=== PATIENT | female | born 1940 | race Caucasian/White ===

== ENCOUNTER → 2019-07-15 09:13 | Outpatient (CLI) | payer MEDICARE, SELFPAY ==
[2019-07-16 09:17] LABS: COVID19 Sendout NOT DETECTED (Not Detect)
== END ==
PROVIDERS: Visit Provider Registered Nurse
DX: Z01.812 Encounter for preprocedural laboratory examination (principal)
CPT/HCPCS: 87635

== ENCOUNTER 2019-07-17 06:12 | Day surgery (SDC) | payer MEDICARE, SELFPAY ==
[2019-07-08 09:56] VITALS: BMI 31.4
[2019-07-17] VITALS (13 sets, daily range): BP systolic 96–137; BP diastolic 41–82; PULSE 59–80; RESP 12–18; TEMP 35.8–36.7; O2SAT 92–98; BMI 31.4
--- NOTE | 2019-07-17 06:00 | DI.RAD.S_ITS ---
PROCEDURE: XR HIP W PEL IF DONE LT 2V INDICATIONS: left total hip TECHNIQUE: AP pelvis with lateral view(s) of the left hip. COMPARISON: None. FINDINGS: Bones: No fractures or dislocations. Pelvic ring appears intact. No suspicious bony lesions. Soft tissues: The visualized bowel gas pattern is normal. No suspicious soft tissue calcifications. IMPRESSION: Successful left total hip arthroplasty with normal alignment. Prior right total hip arthroplasties there was no evidence of device loosening or disruption. Dictated by: Roel Phillips M.D. on 07/17/2019 at 10:43 Approved by: Roel Phillips M.D. on 07/17/2019 at 10:43
[2019-07-17] MEDS: ACETAMINOPHEN 325 MG TABLET 975 MG PO ×2 (06:51→20:32)
[2019-07-17] MEDS: CELECOXIB 200 MG CAPSULE PO (06:51)
[2019-07-17] MEDS: PREGABALIN 75 MG CAPSULE PO (06:51)
[2019-07-17] MEDS: LACTATED RINGERS 1,000 ML 42 ML IV ×2 (06:55→09:25)
[2019-07-17] MEDS: VANCOMYCIN 1,000 MG/200 ML PIGGYBACK 200 MG IV (07:00)
--- NOTE | 2019-07-17 07:42 | PM.PREOP ---
Pre-operative Note COVID-19 COVID-19 status: Negative Interval Note History & Physical reviewed/Exam performed by Physician: Yes Changes to H&P: No
--- NOTE | 2019-07-17 07:42 | PM.OP.1 ---
Operative Date/Time/Diagnoses Date of procedure: 07/17/19 Time of procedure: 07:42 Pre-op diagnosis: Left hip OA Post-op diagnosis: same Procedure & Clinicians Procedure: Left total hip arthroplasty posterior approach Same procedure as scheduled: Yes Indications: The patient has had progressively worsening left hip pain with radiographic changes consistent with arthritis. Non-operative management has failed and the patient has requested total hip replacement. The risks, benefits and alternatives to surgery were discussed with the patient prior to proceeding. Risks discussed included, but were not limited to, failure to relieve pain, leg length discrepancy, dislocation, stiffness, infection, nerve damage, deep venous thrombosis, pulmonary embolism, stroke, coma, heart attack, permanent paralysis and , as well as the potential need for eventual revision of the prosthetic. Surgeon: Jeanne Benedict Interior Design Principal: Sam Ramos Anesthesia Type: General and Spinal Operative Notes Findings: Severe left hip OA, good stability Closure Type: primary Specimen(s): none sent Prosthetic devices, grafts, tissues, transplants, or devices: [employer]hew 50 R3 cup, size 3 standard offset anthology, minus 3 x 32 mm Oxinium femoral head Estimated Blood Loss (mL): 250 Blood products transfused: none Procedure in detail: The patient was seen in the pre-operative area, where the patient identified the left hip as the operative site and this was marked with my initials. The patient received pre-operative antibiotics and was taken to the operating room and placed on the operative table in the right lateral decubitus position after satisfactory anesthesia. A time clock mechanic out was performed. The left leg was prepared from the ankle to the iliac crest with ChloroPrep in the usual fashion and draped through sterile drapes. The hip was approached through an approximately 20 cm incision centered over the greater trochanter and curving gently posteriorly as it went proximally. This was carried sharply to the fascia gracia, which was divided and retracted with a self retaining retractor. The trochanteric bursa was excised with care being taken to avoid the sciatic nerve, which was identified and protected throughout the case. The short external rotators were incised and the capsulomuscular flap was raised and tagged for later repair. The hip was dislocated, and a femoral neck osteotomy performed approximately 15 mm above the lesser trochanter. Retractors were placed around the femur. The canal was opened with a box cutting osteotome, followed by a T handled reamer and a lateralizing reamer. The chili pepper broach was then used, followed by sequential broaching until there was good stability of the broach in the femur. Retractors were placed to expose the acetabulum. The labrum and central soft tissues were removed. Reaming was performed initially going up in 2 mm increments, then 1 mm increments until good bite was obtained with an odd sized reamer. The cup 1 mm larger than the last reamer was then inserted using the appropriate anteversion guides. She had a somewhat sclerotic rim and I actually put the cup in was unhappy without was seated to get out re-reamed it slightly and then inserted the cup and got a well seated cup which was stable to testing. A trial neutral liner was placed. The broach was placed in the canal. A trial head and neck were then placed and the hip relocated and checked for leg length and stability. An intraoperative film confirmed the component position and no evidence of fracture. The patient was stable in the position of sleep, of squatting, and could be put through a range of motion with 45 degrees internal rotation without dislocation. At 90 degrees flexion, internal rotation to 80 was possible before dislocation. This was felt to be satisfactory and the appropriate components were opened, and the trials were removed. The acetabular liner was impacted into position. The final stem was then impacted into the prepared femoral canal. A brief Betadine soak was performed while trialing with head options. The hip was meticulously irrigated with normal saline. Finally the femoral head was impacted onto the stem. The acetabulum was cleared of all material and the hip relocated one final time. The capsulomuscular flap was then repaired to the greater trochanter though an awl hole using the tag sutures. The short external rotators were repaired with a nonabsorbable suture. A deep drain was placed and brought out anteriorly. The fascia gracia was closed with Vicryl. The subcutaneous layer was closed with barbed sutures and SteriStrips. An Aquacel Ag dressing was applied and the patient was taken to recovery having tolerated the procedure well. Complications: none Post-operative Condition: stable Disposition: Acute Care Plan for aftercare: The patient will be maintained on a standard total hip replacement protocol with weight bearing as tolerated and posterior hip precautions. The patient will receive Aspirin and sequential compression devices for DVT prophylaxis. The patient will be discharged home when safe for the home environment.
[2019-07-17] MEDS: CEFAZOLIN 2 GM/100 ML FROZ.PIGGY IV ×2 (07:55→17:16)
[2019-07-17] MEDS: TRANEXAMIC ACID 1,000 MG VIAL 1000 MG INJ ×2 (08:00→09:45)
--- NOTE | 2019-07-17 08:36 | SUR.OPER ---
Lateral on padded OR bed. Gel axillary roll. Arms secured on padded armboard with pillow supporting top arm. Padded hip positioner braces x4 - anterior and posterior chest and pelvis. Additional gel pad used anterior pelvis. Gel pad under bottom leg from knee to foot and secured with tape over sheet.
--- NOTE | 2019-07-17 08:38 | DI.RAD.S_ITS ---
PROCEDURE: XR PELVIS 1-2V INDICATIONS: INTEROPERATIVE TOTAL LEFT HIP TECHNIQUE: Intra-operative view of the pelvis and hip acquired. [facility] [place] [place], XR PELVIS WITH LATERAL HIP LEFT, 04/18/2019, 10:00. FINDINGS: Bones: Intraoperative devices prior to placement of arthroplasty prostheses are in expected positions. No fractures or suspicious bony lesions. Soft tissues: Overlying surgical retractors are present, along with other intraoperative changes. IMPRESSION: Intraoperative device in appropriate position and alignment. Dictated by: Jocelynn Sparks M.D. on 07/17/2019 at 9:38 Approved by: Jocelynn Sparks M.D. on 07/17/2019 at 9:38
[2019-07-17] MEDS: BUPIVACAINE 0.25% W/ EPI 30 ML VIAL 60 ML INJ (08:41)
[2019-07-17] MEDS: BUPIVACAINE LIPOSOME 266 MG/20 ML VIAL INJ (08:42)
[2019-07-17] MEDS: EPINEPHrine 1 MG/ML IRR (08:43)
[2019-07-17] MEDS: LACTATED RINGERS 1,000 ML 125 ML IV ×2 (11:19→20:41)
--- NOTE | 2019-07-17 12:09 | PC.NURSE ---
Pt to room 213 via bed from PACU. Pt awake alert and oriented. Denies pain, nausea, or shortness of breath. Oriented to room, call light, bed controls, and tv controls. Bed alarm on for safety. SCD's running. Pt agrees to not get up without assistance.
--- NOTE | 2019-07-17 13:41 | PT.IIE ---
Current Diagnoses Unilateral primary osteoarthritis, left hip (07/17/19) Surgery Performed Operation Date: 07/17/19 07:45 Actual Procedures p Total Hip Arthroplasty(Left) - Jeanne Benedict MD Surgical History (Last Updated 07/08/19 @ 10:16 by Selina Medeiros, RN) History of carpal tunnel surgery of right wrist (Acute) History of colonoscopy with polypectomy (Acute) History of hysterectomy (Acute) History of total right hip arthroplasty (Acute 12/04/14) Hx of bilateral cataract extraction (Acute) Hx of cholecystectomy (Acute) Hx of elbow surgery (Acute) Hx of thumb surgery (Acute) Status post epidural steroid injection (Acute) Medical History (Last Updated 07/08/19 @ 10:21 by Selina Medeiros RN) Bilateral hip pain (Acute) Diabetes mellitus, type II (Acute) Diverticulosis (Acute) Hearing impaired (Acute) HLD (hyperlipidemia) (Acute) HTN (hypertension) (Acute) Lumbar spinal stenosis (Acute) Neuropathy (Acute) Osteoarthritis (Acute) Physical Therapy Inpatient Evaluation/Re-Eval M1 PT/OT-IP Prior Functional Status Start: 07/17/19 13:48 Freq: NEEDED Status: Active Protocol: Document 07/17/19 13:02 DCW (Rec: 07/17/19 14:03 DCW [id number]) Medical Review Prior Functional Status Medical History Reviewed Yes Social History Household Members spouse Living Arrangements Mobile home Number of Floors (Floors) One Floor Number of Stairs To Enter/Railing? 5 DANNY /c B railing Home Environment Standard Height Toilet Home Equipment Four Wheel Walker M2 PT-IP Current Condition Start: 07/17/19 13:48 Freq: NEEDED Status: Active Protocol: Document 07/17/19 13:02 DCW (Rec: 07/17/19 14:03 DCW [id number]) Physical Therapy Current Condition Current Condition Evaluation Date 07/17/19 Treatment Diagnosis L XIMENA Onset Date 07/17/19 Precautions Posterior Hip Precautions No Hip Flexion > 90 degrees,No Hip Internal Rotation,No Hip Adduction Weight Bearing Status Weight Bearing Status Weight Bear as Tolerated M3 PT-IP Subjective Start: 07/17/19 13:48 Freq: NEEDED Status: Active Protocol: Document 07/17/19 13:02 DCW (Rec: 07/17/19 14:03 DCW [id number]) Subjective Physical Therapy Visit Type Type Initial Evaluation Visit Start Time 13:02 Visit Stop Time 13:41 Total Visit Minutes 39 Notes Pt is a 78 year old female being seen s/p L XIMENA on day of surgery. Pt notes her pain is just starting, and only a 1 /10. Has a history of R XIMENA ~4 years ago, and can still repeat all her hip precautions . Pt typically does not use an assistive device, but does have a 4WW that she'll use when out on long walks with my friends, it has a seat in case I get tired. Number of GANG HEAD SAW OPERATOR Visits 0 Therapy Pain Assessment Pain When Pain Assessed At Rest Pain Present Pain Present Pain Reported Location Left Hip Intensity 1 Scale Used Numeric (0 - 10) M4 PT-IP Mobility and Gait Start: 07/17/19 13:48 Freq: NEEDED Status: Active Protocol: Document 07/17/19 13:02 DCW (Rec: 07/17/19 14:03 DCW [id number]) PT-Bed Mobility Assessment Rolling Type of Rolling Roll to Right Level of Assist Standby Assistance Supine to Sit Supine to Sit Standby Assistance Sit to Supine Sit to Supine Standby Assistance Scooting Scooting to Edge of Bed Standby Assistance PT-Transfer Assessment Sit to and From Stand Sit to and from Stand Standby Assistance Equipment Transfer Assistive Device Bed Rail,Gait Belt,Front Wheeled Walker Transfers Transfer Destination Bed,Chair,Toilet Transfer Technique Stand Step Pivot Transfer Ability Level of Assist Standby Assistance Gait Assessment Gait Gait Assistance Required: Standby Assistance Distance (Feet) 10 Assistive Devices Assistive Device Gait Belt,Front Wheeled Walker Gait Deviations General Gait Pattern Antalgic,Decreased Stride Length,Decreased Feet Clearance,Flexed Trunk,Step-to Gait Factors Limiting Gait Function Factors Limiting Gait Function Decreased Sensation,Decreased Strength,Limited Range of Motion,Pain M5 PT-IP Objective Assessments Start: 07/17/19 13:48 Freq: NEEDED Status: Active Protocol: Document 07/17/19 13:02 DCW (Rec: 07/17/19 14:03 DCW [id number]) Orientation Orientation/Cognition Level of Alertness Alert Orientation Name,Birthday,Month,Date,Year, Day of Week,Place,Situation Language Function Ability No Deficits Noted Safety Awareness Understands Safety Issues Memory Description No Deficits Noted Gross Range of Motion Upper Extremity ROM Assessment Within Functional Limits Lower Extremity ROM Assessment Left Impaired Impairments Limited to posterior hip precautions Strength Lower Extremity Strength Assessment Left Impaired Hip 3-/5 Knee 4/5 Ankle 4/5 M6 PT-IP Treatment Start: 07/17/19 13:48 Freq: NEEDED Status: Active Protocol: Document 07/17/19 13:02 DCW (Rec: 07/17/19 14:03 DCW [id number]) Physical Therapy Treatment Exercises Exercises Ankle Pumps,Gluteal Sets,Quad Sets,Heel Slides,Supine Hip Abduction M7 PT-IP Assessment and Plan Start: 07/17/19 13:48 Freq: NEEDED Status: Active Protocol: Document 07/17/19 13:02 DCW (Rec: 07/17/19 14:03 DCW [id number]) PT Summary Assessment and Plan Potential Rehabilitation Potential Good Status of Condition at Evaluation Stable Summary Impairments Pain,ROM,Strength,Gait, Activity Tolerance Assessment Summary Pt is a low complexity evaluation performed day-of surgery following a left XIMENA. Pt demonstrates ability to lift leg against gravity, perform a heel slide to 90? hip flexion in a semi-reclined position, and abducts to 45?. Pt instructed in post-op hip TherEx, and demonstrated knowledge of all hip precautions. Pt able to perform all bed mobility at SBA. Pt willing to stand up and try to bear weight through leg, and then decided she needed to go to the restroom. Pt able to get to the toilet SBA /c FWW, ~10 feet, and void and perform pericare independently. Pt then returned to bed SBA /c FWW, and was too fatigued to participate in further therapy . Pt doing very well at this time, and will likely be safe to return home with spouse assistance within the next 1-2 days. Pt reports she did not have a good experience with out-patient PT following her last XIMENA, and is hesitant to schedule any follow-up after this XIMENA, but by the end of todays session, admitted that she knew it would be better if she were to see someone, and would think about scheduling further appointments. Goals Bed Mobility Goal Independent Transfer Goal Independent Gait Goal Independent Gait Distance 100 Other Goals Ascend/descend 5 steps /c bilateral railing SBA Frequency of Treatment Frequency Of Treatment Twice a Day Treatment Plan Physical Therapy Treatment Plan Bed Mobility Training,Transfer Training,Gait Training, Therapeutic Exercise,Post Op Education,Discharge Planning Recommendations To Nursing Amount of Assist Needed Standby Assistance Discharge Recommendations PT Discharge Recommendations Home with Assistance Transportation Needs at Discharge Private Vehicle
[2019-07-17] MEDS: ACETAMINOPHEN 325 MG TABLET 650 MG PO (13:50)
[2019-07-17] MEDS: IBUPROFEN 400 MG TABLET PO ×3 (13:50→20:38)
[2019-07-17] MEDS: AMLODIPINE 5 MG TABLET PO (20:33)
[2019-07-17] MEDS: diphenhydrAMINE 25 MG TABLET 50 MG PO (20:33)
[2019-07-17] MEDS: PRAVASTATIN 20 MG TABLET 40 MG PO (20:34)
[2019-07-17] MEDS: ASPIRIN EC 81 MG TABLET PO (20:34)
[2019-07-17] MEDS: atenoloL 50 MG TABLET PO (20:34)
[2019-07-17] MEDS: DOCUSATE 100 MG CAPSULE PO (20:34)
[2019-07-17] MEDS: MELATONIN 3 MG TABLET 9 MG PO (20:34)
[2019-07-17] MEDS: GLIMEPIRIDE 2 MG TABLET PO (20:45)
[2019-07-18] MEDS: CEFAZOLIN 2 GM/100 ML FROZ.PIGGY IV (00:14)
[2019-07-18] MEDS: IBUPROFEN 400 MG TABLET PO ×2 (05:09→08:38)
[2019-07-18 05:32] VITALS: BP 110/50; PULSE 60; RESP 18; TEMP 36.6; O2SAT 95
[2019-07-18 06:55] LABS: Hematocrit 32.7 % (36-46); Hemoglobin 11.3 g/dL (12.0-16.0)
--- NOTE | 2019-07-18 08:09 | PM.DS.1 ---
History of Present Illness History of Present Illness Date Patient Seen: 07/18/19 Time Patient Seen: 08:09 Chief complaint: Left Total Hip Arthroplasty Narrative: Patient was admitted with severe left hip osteoarthritis and taken to the operating room for a left total hip arthroplasty. Discharge Providers Provider Discharge Date: 07/18/19 Consults: 07/17/19 06:00 Consult to Anesthesiology Routine Comment: Consulting Provider: Anesthesiologist Reason for consultation: Regional block for post operative pain control 07/17/19 11:01 Consult to Discharge Planning Routine Comment: Consult to Physical Therapy Evaluate & Treat Comment: Physician Instructions: post op XIMENA protocol Consult to Respiratory Therapy Evaluate & Treat Comment: Physician Instructions: Evaluate and treat 07/17/19 11:02 Consult to Anesthesiology Routine Comment: Consulting Provider: Anesthesiologist Reason for consultation: Regional block for post operative pain control Discharge provider: Jeanne Benedict MD Summary Hospital Course Discharge Diagnosis: Severe left hip osteoarthritis, left total hip arthroplasty Hospital Course: Patient is taken the operating room underwent a left total hip arthroplasty. She tolerated the procedure well. She was mobilized with physical therapy. She was discharged to home when cleared by physical therapy. Status at Discharge Cognitive/behavioral status at discharge: oriented Functional status at discharge: uses cane/walker Overall status at discharge: patient is progressing back to baseline Time Spent with Patient Time spent: Less than 30 minutes Exam Vital Signs (past 8 hours): - 07/18/19 05:32 Temperature 97.8 F Pulse Rate 60 Respiratory Rate 18 Blood Pressure 110/50 L Pulse Oximetry 95 Oxygen Delivery Method Room Air Oxygen Flow Rate 0 Narrative Exam Narrative: She is alert and oriented HEENT is benign lungs are clear cor regular rate and rhythm, calfs are soft bilaterally, and she is able to do straight leg raise on the left her dressing is dry and intact. Objective Labs Result Diagrams: 07/18/19 06:39 Labs: Laboratory Results - last 24 hr 07/18/19 06:39 Hgb 11.3 L Hct 32.7 L Discharge Plan Discharge Plan Patient Disposition: Home Discharge comment: Discharge to home when safe and seen by Physical therapy Discharge Med Rec/Prescriptions Prescriptions: New aspirin 81 mg Tablet,Delayed Release (Dr/Ec) 81 mg PO BID Qty: 90 RF: 0 ibuprofen 400 mg Tablet 400 mg PO Q4HR Qty: 30 RF: 0 Continued pravastatin 40 mg Tablet 40 mg PO BEDTIME RF: 0 chlorthalidone 25 mg Tablet 25 mg PO DAILY RF: 0 amlodipine 5 mg Tablet 5 mg PO BEDTIME RF: 0 acetaminophen [Tylenol Extra Strength] 500 mg Tablet 1,000 mg PO DAILY RF: 0 glimepiride 2 mg Tablet 2 mg PO BEDTIME RF: 0 diphenhydramine-acetaminophen [Tylenol PM Extra Strength] 25-500 mg Tablet 2 tab PO BEDTIME RF: 0 lisinopril 40 mg Tablet 40 mg PO DAILY RF: 0 atenolol 50 mg Tablet 50 mg PO BID RF: 0 melatonin 10 mg Tablet 10 mg PO BEDTIME RF: 0 Discharge Orders: Discharge (Order); Ordered 07/18/19 Ordered By: Jeanne Benedict Provider Discharge Instructions Diet: Diet as Tolerated Activity: Walk multiple times a day. Do not bend down or pick objects off the floor. Cold/Heat Therapy: Use ice multiple times a day. Skin/Wound/Dressing Care Report to your healthcare provider any signs of infection, such as:: chills, fever, night sweats, increased pain, unusual drainage and unusual redness Dressing: Keep dressing on. Okay to shower Visit Report/Discharge Packet Instructions: DI for Hip Replacement Stand Alone Forms: Surgery Discharge Discharge Data Attending Provider: Jeanne Benedict VTE Deep Vein Thrombosis/Pulmonary Embolism Present on Admission: No
[2019-07-18 08:27] VITALS: BP 110/58; PULSE 72; RESP 16; TEMP 36.9; O2SAT 93
[2019-07-18] MEDS: DOCUSATE 100 MG CAPSULE PO (08:37)
[2019-07-18] MEDS: ASPIRIN EC 81 MG TABLET PO (08:37)
[2019-07-18] MEDS: ACETAMINOPHEN 325 MG TABLET 975 MG PO (08:37)
[2019-07-18] MEDS: atenoloL 50 MG TABLET PO (08:38)
[2019-07-18 11:45] VITALS: RESP 16; TEMP 36.7
[2019-07-18 12:00] VITALS: BP 95/52; PULSE 75; O2SAT 93
--- NOTE | 2019-07-18 12:02 | PC.NURSE ---
Addendum entered by Terra Shaw R.N. 07/18/19 12:51: CAREGIVER GIVING COMPLETED BY PHYSICAL THERAPY. PATIENT CLEARED FOR DC HOME. PATIENT LEFT WITH ALL BELONGINGS AND PAPERWORK IN NO S/SX'S OF DISTRESS W/ ALL BELONGINGS AND PAPERWORK IN [employer] WITH FAMILY MEMBER TO DRIVE HOME, AND SEVERAL FAMILY MEMBERS IN CAR TO GREET HER. Addendum entered by Terra Shaw R.N. 07/18/19 12:10: PATIENT REACHES 1500-2000CC'S W/ I.S. X10 BREATHS. INSTRUCTED TO TAKE I.S. HM AND CONTINUES Q 1 HR X10 W/A. Original Note: PATIENT REPORTS PAIN LEVEL 3/10 WITH TYLENOL AND IBUPROFEN. STATES DOES NOT WANT NARCOTIC PAIN MEDICATIONS. BP 110/58 THIS AM. HELD DIURETIC AND LISINOPRIL. GAVE BETA LAQUITA. PATIENT CLEARED FOR DC FROM PHYSICAL THERAPY. TOLERATED STAIRS. CAREGIVER TRAINING AT NOON. BP 98/50 HR 71 SITTING AT NOON, RECHECKED W/ PATIENT STANDING 95/52 HR 75. ASYMPTOMATIC. PATIENT HAS BP CUFF AT HOME. INSTRUCTED TO MONITOR PRESSURES AT HOME, SHE WILL HOLD BP EXCEPT BETA LAQUITA UNTIL SBP 120. CALL MD IF BP LOW OR SYMPTOMATIC. CALL 911 FOR EMERGENCY. REVIEWED ALL DC HOME PAPERWORK WITH PATIENT. INSTRUCTED TO CALL OFFICE TO CONFIRM F/U APPT. MIN ASSIST TO GET DRESSED, TOLERATED WELL. NO NARCOTIC SCRIPTS. PATIENT CONFIRMS UNDERSTANDING OF ALL DC PAPERWORK.
--- NOTE | 2019-07-18 12:42 | PT.IPTN ---
Current Diagnoses Unilateral primary osteoarthritis, left hip (07/17/19) Surgery Performed Operation Date: 07/17/19 07:45 Actual Procedures p Total Hip Arthroplasty(Left) - Jeanne Benedict MD Physical Therapy Treatment Note M2 PT-IP Current Condition Start: 07/17/19 13:48 Freq: NEEDED Status: Discharge Protocol: Document 07/17/19 13:02 DCW (Rec: 07/17/19 14:03 DCW [id number]) Physical Therapy Current Condition Current Condition Evaluation Date 07/17/19 Treatment Diagnosis L XIMENA Onset Date 07/17/19 Precautions Posterior Hip Precautions No Hip Flexion > 90 degrees,No Hip Internal Rotation,No Hip Adduction Weight Bearing Status Weight Bearing Status Weight Bear as Tolerated M3 PT-IP Subjective Start: 07/17/19 13:48 Freq: NEEDED Status: Active Protocol: Document 07/18/19 10:38 KS (Rec: 07/18/19 14:22 KS [email or web address]) Subjective Physical Therapy Visit Type Type Treatment Note Visit Start Time 10:38 Visit Stop Time 12:42 Total Visit Minutes 59 Notes Split treatment. 10:38-11:25, 12:30-12:42 Number of OPENER TENDER Visits 1 Physical Therapy Visit Comments Patient Comments Pt agreeable to working w/ therapy. Therapy Pain Assessment Pain When Pain Assessed During Mobility Pain Present Pain Present Pain Reported Location Left Hip Intensity 4 Scale Used Numeric (0 - 10) Pain Management Techniques Timing of Activity with Medications M4 PT-IP Mobility and Gait Start: 07/17/19 13:48 Freq: NEEDED Status: Active Protocol: Document 07/18/19 10:38 KS (Rec: 07/18/19 14:22 KS [id number]) PT-Bed Mobility Assessment Rolling Type of Rolling Roll to Left Level of Assist Standby Assistance Supine to Sit Supine to Sit Minimal Assistance,1 Person Assistance Sit to Supine Sit to Supine Standby Assistance Scooting Scooting to Edge of Bed Standby Assistance PT-Transfer Assessment Sit to and From Stand Sit to and from Stand Standby Assistance Equipment Transfer Assistive Device Gait Belt,Front Wheeled Walker ,4 Wheeled Walker Transfers Transfer Destination Bed,Chair,Toilet Transfer Technique Pt ambulated w/ 4WW Transfer Ability Level of Assist Standby Assistance,1 Person Assistance Comments Mobility Comments PT was in chair upon arrival from therapy. Able to recall 3 /3 precautions and demonstrate ankle pumps, quad sets, heel slides, and glute sets correctly. Pt then scooted edge of chair and sit<>stand SBA w/ 4WW w/ cues to apply brakes. Pt then ambulated ~150 ft w/ 4WW before taking seated rest break ~2 min. Pt able to improve gait w/ cues for quad acvtivation and upright posture. Pt then ambulated additional ~30 ft to stairs and complated 3 steps x2 w/ CGA and cues for sequencing and step to step pattern. Pt then ambulated ~ 180 ft back to room w/ 4WW and no rest break needed. Cues for upright posture. Pt returned to room and used bathroom, SBA for stand<>sit on toilet, cues to use hand rail. Pt then ambulated back to bed and sit<>supine CGA w/ use of gait belt to assist LLE into bed and scooting in bed SBA. Pt then required Min A for sup<>sit. This therapist then contacted pts family to perform caregiver training for pt transfers into and out of bed. Pt ambulated back to chair, left in chair w/ all needs in reach. Upon return for caregiver training, pt was sitting EOB w/ caregiver in room. Provided caregiver training on application of gaitbelt and assist for pt sup <>sit. Caregiver was able to provide correct assist to pt for sup<>sit and pt and caregiver state they both feel safe to perform at home. Gait Assessment Gait Gait Assistance Required: Standby Assistance Distance (Feet) 375 Able to Maintain Weight Bearing Status Yes During Gait Assistive Devices Assistive Device Gait Belt,4 Wheeled Walker Orthotic/Prosthetic Devices or Brace: No Gait Deviations General Gait Pattern Antalgic,Decreased Stride Length,Decreased Feet Clearance,Flexed Trunk Factors Limiting Gait Function Factors Limiting Gait Function Decreased Sensation,Decreased Strength,Limited Range of Motion,Pain Comments Gait Comments Pt ambulated ~375 feet total today w/ 4WW. She required 1 seated rest brake after ~150 ft ambulation. Demonstrated proper use of 4WW and brakes. Cues for upright posture and quad activation. Stair Climbing Assessment Evaluation Level of Assist On Stairs Standby Assistance,Contact Guard Assistance Devices Stair Climbing Assistive Devices Left Railing,Right Railing Technique/Endurance Stair Climbing Direction Ascend and Descend Stair Climbing Technique Step to Step Number of Steps Climbed 3 Stair Climbing Set # Repetitions (reps) 2 Comments Stair Climbing Comments Pt safely ascended/descended 3 steps x2 w/ step to step pattern and cues for leg sequencing. PT-Balance Assessment Sitting Balance and Reactions Static Sitting Balance Ability Normal Dynamic Sitting Balance Ability Good Standing Balance and Reactions Static Standing Balance Ability Good Dynamic Standing Balance Ability Good Device Used 4WW M5 PT-IP Objective Assessments Start: 07/17/19 13:48 Freq: NEEDED Status: Discharge Protocol: Document 07/17/19 13:02 DCW (Rec: 07/17/19 14:03 DCW [id number]) Orientation Orientation/Cognition Level of Alertness Alert Orientation Name,Birthday,Month,Date,Year, Day of Week,Place,Situation Language Function Ability No Deficits Noted Safety Awareness Understands Safety Issues Memory Description No Deficits Noted Gross Range of Motion Upper Extremity ROM Assessment Within Functional Limits Lower Extremity ROM Assessment Left Impaired Impairments Limited to posterior hip precautions Strength Lower Extremity Strength Assessment Left Impaired Hip 3-/5 Knee 4/5 Ankle 4/5 M6 PT-IP Treatment Start: 07/17/19 13:48 Freq: NEEDED Status: Active Protocol: Document 07/18/19 10:38 KS (Rec: 07/18/19 14:22 KS [email or web address]) Physical Therapy Treatment Exercises Exercises Ankle Pumps,Gluteal Sets,Quad Sets,Heel Slides Other Treatments Other Treatment Performed Caregiver training, gait belt LE assist, discussed outpatient rehab M7 PT-IP Assessment and Plan Start: 07/17/19 13:48 Freq: NEEDED Status: Active Protocol: Document 07/18/19 10:38 KS (Rec: 07/18/19 14:22 KS [email or web address]) PT Summary Assessment and Plan Potential Rehabilitation Potential Good Status of Condition at Evaluation Stable Summary Impairments Pain,ROM,Strength,Gait, Activity Tolerance Assessment Summary Pt had good tolerance for exercises and ambulation today . She demonstrated good carryover of exercises and good safety awareness. Able to recall and adhere to precautions. SBA for sit<> stand and ambulation w/ 4WW. 1 seated rest break during ambulation. Completed 3 steps x2 w/ SBA to CGA bilat handrails and cues for sequencing. Caregiver training completed for sup<>sit and LE assistance. Pt would be a good candidate for outpatient rehab to improve strength and functional mobility. Goals Bed Mobility Goal Independent Transfer Goal Independent Gait Goal Independent Gait Distance 100 Frequency of Treatment Frequency Of Treatment Twice a Day Treatment Plan Physical Therapy Treatment Plan Bed Mobility Training,Transfer Training,Gait Training, Therapeutic Exercise,Post Op Education,Discharge Planning Recommendations To Nursing Amount of Assist Needed Standby Assistance,1 Person Assist Discharge Recommendations PT Discharge Recommendations Home with Assistance Transportation Needs at Discharge Private Vehicle
--- NOTE | 2019-07-18 15:02 | CM.DANOTE ---
Discharge Planning/Care Management DCP: assessment: case received and discussed in Team Rounds. PT noted that thus far the PT recommendation was for home setting. A d/c order was noted. Pt is a 78 year old female who admitted yesterday for a scheduled L XIMENA: surgeon: Dr. Zaki Benedict. Payer: [facility] Medicare Admission status: SDC: confirmed by UR RN A check in later showed that pt has already left for the home setting , picked up by multiple family members. No concerns re the d/c today were identified by the care team members. Pre-Anesthesia Assessment Start: 07/03/19 09:30 Freq: Status: Complete Protocol: Document 07/08/19 09:56 CAB (Rec: 07/03/19 10:04 CAB [id number]) Pre-Anesthesia Assessment Patient Information Reviewed Via Phone Assessment Assessment Completed With Patient H&P Completed Within 30 Days Yes Diagnostic Results BMP/CMP,CBC,EKG,Other Comment Outside records scanned to record-Pt will call to schedule COVID-19 Primary Care Provider Taz Seen Specialist in Last 12 Months Yes Specialist Seen Opthamologist/Computer Engineering Technician, Orthopedist Primary Language Thai Preferred Language Thai Stripper Opaquer Required No Height 154.94 cm Weight 75.296 kg Body Mass Index (BMI) 31.4 Hearing Ability Hard of Hearing,Use of Hearing Aid Visual Assist Glasses Dentition Type Full- Upper Barriers to Learning None,Age related,Memory Other Aids No Hx Anesthesia Reactions No Hx Family Anesthesia Reaction No Hx Malignant Hyperthermia No Hx Blood Transfusions Yes: r/t cholecystectomy Hx Blood Transfusion Reaction No Anesthesia Review Requested No alcohol intake never Smoking Status Never smoker Substance Use Type does not use Pain Present Pain Reported Musculoskeletal Symptoms Abnormal Gait,Back Pain, Difficulty Walking,Joint Pain, Myalgias History of Falling (Recent or History of No ) Patient is completely paralyzed or No completely immobile Prosthesis or Orthotic Device Front Wheel Walker Mental Status Oriented to own ability Is patient on oxygen? No Does patient have ALSTON/SOB No Hx Sleep Apnea No Currently Taking a Beta Ruby Yes: Atenolol Can You Climb a Flight of Stairs Without No SOB Hx Chest Pain No Hx SOB No Hx Syncope or Dizziness No Anti-Coagulant Therapy No Has a Gas Compressor Operator No Cardiac Testing No Hx Pacemaker/ICD No Pacemaker Rep Required? No Cardiac Clearance Received Not Applicable Diet Type At Home Regular dysphagia No Gastrointestinal Symptoms Diarrhea Bladder Pattern Incontinent,Retention,Urgency Urinary Catheter Present No Hx Urinary Self Catheterization No Diabetes Yes HgbA1C 7.5 Date 05/20/19 Patient No Lactating No Hx Drug Resistant Organism No Presence of External or Internal Medical Yes: Bilat eye lens, right hip Devices prosthesis Have you had any close contact with No someone diagnosed with COVID-19? Evaluation/Screening for possible COVID- Yes 19 infection completed? Marital Status Lives With spouse Prior Living Arrangements House Number of Floors (Floors) One Floor Support System Spouse Does the Patient Have Assistance After Yes: has cognitive Surgery difficulties, possible dementia Patient Discharge Plan Description Return Home,Other Comment Pt advised overnight length of stay per surgeon Feels Safe in Current Environment Yes Been Physically Hurt or Threatened By a No Person in Current Environment Do you have thoughts of harming yourself None or others? Are you currently considering suicide? No Do you have a plan to hurt yourself or No Plan others? Do You Have Any Spiritual Beliefs That No May Affect Your HC Choices? Do You Have Any Cultural Practices That No May Affect Your HC Choices? Comment Spiritism Who Can We Speak to About Patient's Care Family, friends Identifying Code for Release of Patient Declines to issue Information Health Care Proxy/Next of Kin Christie Eddy (family) Health Care Proxy Emergency Contact Name Christie Eddy (family) Emergency Contact Advance Directives? Yes Advance Directives on File Yes Power of Training Facilitator Yes PAC Instructions Diabetes instructions,Do not shave/clip surgical site, Durable medical equipment, Nasal antibiotic,No ETOH/ petroleum product on skin DOS, NPO,Post-op transportation,Pre -surgical wash,Sensory aids, Sturdy shoes/comfortable clothes
== END 2019-07-18 12:53 | disposition home or self-care (01) ==
LOC: OR 06:29 → AC 08:44
PROVIDERS: Referring Provider Orthopaedic Surgery; Visit Provider Orthopaedic Surgery
PROC: 0SRB0JZ Replacement of Left Hip Joint with Synthetic Substitute, Open Approach (ICD-10-PCS; CPT 27130; principal; 2019-07-17 07:45)
DX: M16.12 Unilateral primary osteoarthritis, left hip (principal); I10 Essential (primary) hypertension; E11.9 Type 2 diabetes mellitus without complications; E78.5 Hyperlipidemia, unspecified; Z79.84 Long term (current) use of oral hypoglycemic drugs
CPT/HCPCS: 27130; 36415; 72170; 73502; 85014; 85018; 97110; 97116; 97161; 97530; C1776; C9290; J0171; J0690; J2250; J2704; J3010

== ENCOUNTER → 2023-05-26 10:26 | Outpatient (CLI) | payer MEDICARE, SELFPAY ==
[2019-07-17 11:25] VITALS: BMI 31.4
--- NOTE | 2023-05-26 | DI.CT.S_ITS ---
PROCEDURE: CT LE LT W CON INDICATIONS: Presence of left artificial hip joint TECHNIQUE: Noncontrast 3 mm axial sections acquired through the bony pelvis. Additional 3 mm axial sections acquired through the symptomatic hip joint, with coronal and sagittal reformats. COMPARISON: [facility], CR, XR PELVIS WITH LATERAL HIP LEFT, 05/16/2023, 16:38. FINDINGS: Image quality: Excellent. Bones: Partially visualized lower lumbar fusion present at L4-5. Left pedicular screw at L4 terminates along the lateral margin of the vertebral body. Hardware is intact. Bilateral hip arthroplasties are present. The left arthroplasty intact without hardware fracture or periprosthetic lucency to suggest loosening. Alignment is stable. The right hip arthroplasty is only identified on motel clerk view and alignment is stable. Soft tissues: Intestinal gas pattern is nonobstructive. Mild scattered diverticula without inflammatory change. Bladder is distended. IMPRESSION: Bilateral hip arthroplasties with stable alignment. Dictated by: Merry Hagan M.D. on 05/27/2023 at 8:39 Approved by: Merry Hagan M.D. on 05/27/2023 at 8:42
== END ==
LOC: CT 10:27
PROVIDERS: Referring Provider Orthopaedic Surgery; Visit Provider Orthopaedic Surgery
DX: Z96.643 Presence of artificial hip joint, bilateral (principal); Z09 Encounter for follow-up examination after completed treatment for conditions other than malignant neoplasm
CPT/HCPCS: 73700

== ENCOUNTER 2024-06-05 08:28 | Inpatient (IN) | payer MEDICARE, SELFPAY ==
[2019-07-17 11:25] VITALS: BMI 31.4
[2024-05-28 07:14] VITALS: BMI 26.2
[2024-06-05] VITALS (12 sets, daily range): BP systolic 101–145; BP diastolic 42–64; PULSE 51–65; RESP 12–20; TEMP 35.8–36.6; O2SAT 95–99; BMI 26.4; BMI 27.6
--- NOTE | 2024-06-05 | DI.RAD.S_ITS ---
PROCEDURE: XR PELVIS 1-2V INDICATIONS: INTRA OP LEFT HIP TECHNIQUE: Intra-operative view of the pelvis and hip acquired. COMPARISON: [facility], CR, XR PELVIS 1-2V, 07/17/2019, 9:04. FINDINGS: Bones: Intraoperative devices of arthroplasty are in expected positions. No fractures or suspicious bony lesions. Soft tissues: Overlying surgical retractors are present, along with other intraoperative changes. IMPRESSION: Left hip arthroplasty in progress Approved by: Johnny Land M.D. on 06/05/2024 at 12:10
--- NOTE | 2024-06-05 06:43 | DI.RAD.S_ITS ---
PROCEDURE: XR HIP W PEL IF DONE LT 2V INDICATIONS: left hip revision TECHNIQUE: AP pelvis and lateral view of the hip acquired. COMPARISON: [facility], CR, XR PELVIS WITH LATERAL HIP LEFT, 04/17/2024, 11:43. [facility], CR, XR PELVIS 1-2V, 06/05/2024, 11:54. FINDINGS: Bones: Patient is status post left hip arthroplasty, with hardware components in expected positions. The hip joint appears congruent. Stable appearance of right hip arthroplasty peer The visualized bony structures appear intact. Partially visualized lower lumbar spine hardware. Soft tissues: Overlying postoperative changes are noted. No suspicious soft tissue densities. IMPRESSION: Expected post-operative appearance of a hip arthroplasty. Dictated by: Troy Hunt M.D. on 06/06/2024 at 12:20 Approved by: Troy Hunt M.D. on 06/06/2024 at 12:21
[2024-06-05] MEDS: VANCOMYCIN 1,000 MG in SODIUM CHLORIDE 0.9% 250 ML 250 MG IV (09:37)
[2024-06-05] MEDS: ACETAMINOPHEN 325 MG TABLET 975 MG PO (09:37)
[2024-06-05] MEDS: CELECOXIB 200 MG CAPSULE PO (09:37)
[2024-06-05] MEDS: LACTATED RINGERS 1,000 ML 42 ML IV (09:37)
--- NOTE | 2024-06-05 10:22 | PM.PREOP ---
Pre-operative Note Interval Note History & Physical reviewed/Exam performed by Physician: Yes Changes to H&P: No
--- NOTE | 2024-06-05 10:23 | PM.OP.1 ---
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 She also has a history of a spine fusion. She has had multiple episodes of instability in the left hip all of which have been posterior. She is failed extensive conservative treatment including bracing and significant activity modification. Non-operative management has failed and the patient has requested revision total hip replacement. The risks, benefits and alternatives to surgery were discussed with the patient prior to proceeding. Risks discussed included, but were not limited to, failure to relieve pain, leg length discrepancy, dislocation, stiffness, infection, nerve damage, deep venous thrombosis, pulmonary embolism, stroke, coma, heart attack, permanent paralysis and , as well as the potential need for eventual revision of the prosthetic. We also discussed that this likely will slightly lengthen her leg and make it a little bit tighter but she still needs to continue with posterior hip precautions. Surgeon: Jeanne Benedict Separations Scientist: Vadim Mcdonnell Anesthesia Type: Spinal Operative Notes Findings: No evidence of femoral or acetabular loosening, instability with flexion and internal rotation prior to revision at about 30? of internal rotation, improved stability after revision, stable in maximum external rotation, stable at 45? to about 80-90 degrees of internal rotation and 90? stable to 80? of internal rotation Closure Type: primary Specimen(s): none sent Prosthetic devices, grafts, tissues, transplants, or devices: Benedict and nephew 36 mm 20 degree by 50 mm lipped polyethylene, 36 x +0 Oxinium head Estimated Blood Loss (mL): 200 Blood products transfused: none Procedure in detail: The patient was seen in the pre-operative area, where the patient identified the left hip as the operative site and this was marked with my initials. The patient received pre-operative antibiotics and was taken to the operating room and placed on the operative table in the right lateral decubitus position after satisfactory anesthesia. A multimedia technician out was performed. The left leg was prepared from the ankle to the iliac crest with ChloroPrep in the usual fashion and draped through sterile drapes. A PA was used during the procedure and was essential for intraoperative retraction and safe implantation of the components. The hip was approached through an approximately 20 cm incision centered over the greater trochanter and curving gently posteriorly as it went proximally. This was carried sharply to the fascia gracia, which was divided and retracted with a self retaining retractor. The trochanteric bursa was excised with care being taken to avoid the sciatic nerve, which was identified and protected throughout the case. The short external rotators were identified and the capsulomuscular flap was tagged for later repair. The patient was placed through meticulous range of motion. There was evidence of instability in high flexion with internal rotation of about 30?. There was no obvious impingement anteriorly. Even at 45? it could be noted to posteriorly sublux with about 60? of internal rotation. The hip was dislocated, and the head was removed. Retractors were placed to expose the acetabulum. The acetabular liner was removed. A trial 36 mm lipped liner was placed. The 20 degree lip was placed posteriorly and along the posterior and inferior rim. A trial head +0 was then placed and the hip relocated and checked for leg length and stability. An intraoperative film confirmed the component position and no evidence of fracture. The patient was stable in the position of sleep, of squatting, and could be put through a range of motion with 45 degrees internal rotation without dislocation. At 90 degrees flexion, internal rotation to 80? was possible before dislocation. This was felt to be satisfactory and the appropriate components were opened, and the trials were removed. The acetabular liner was impacted into position. A brief Betadine soak was performed while trialing with head options. The hip was meticulously irrigated with normal saline. Finally the femoral head was impacted onto the stem. The acetabulum was cleared of all material and the hip relocated one final time. The capsulomuscular flap was then repaired to the greater trochanter though an awl hole using the tag sutures. The short external rotators were repaired with a nonabsorbable suture. A deep drain was placed and brought out anteriorly. The fascia gracia was closed with Vicryl. The subcutaneous layer was closed with barbed sutures and SteriStrips. A nawaf dressing was applied and the patient was taken to recovery having tolerated the procedure well. Complications: none Post-operative Condition: stable Disposition: Acute Care Plan for aftercare: The patient will be maintained on a standard total hip replacement protocol with weight bearing as tolerated and posterior hip precautions. The patient will receive Aspirin and sequential compression devices for DVT prophylaxis. The patient will be discharged home when safe for the home environment.
[2024-06-05] MEDS: CEFAZOLIN 2 GM/100 ML PREMIX 100 ML IV ×2 (11:01→21:09)
[2024-06-05] MEDS: TRANEXAMIC ACID 1,000 MG VIAL 1000 MG INJ ×2 (11:08→12:38)
--- NOTE | 2024-06-05 11:33 | SUR.OPER ---
Lateral on padded OR bed. Gel axillary roll. Arms secured on padded armboard with pillow supporting top arm. Padded hip positioner braces x4 - anterior and posterior chest and pelvis. Additional gel pad used anterior pelvis. Gel pad under bottom leg from knee to foot and secured with tape over sheet. Dr. Benedict in room to assist with positioning. All pressure points padded, positioning approved by
[2024-06-05] MEDS: BUPIVACAINE 0.25% W/ EPI 30 ML VIAL 60 ML INJ (12:12)
[2024-06-05] MEDS: BUPIVACAINE LIPOSOME 266 MG/20 ML VIAL INJ (12:13)
[2024-06-05] MEDS: MORPHINE 10 MG/ML INJ IV (13:30)
[2024-06-05] MEDS: ACETAMINOPHEN 325 MG TABLET 650 MG PO ×2 (14:30→21:11)
[2024-06-05] MEDS: LACTATED RINGERS 1,000 ML 100 ML IV ×2 (14:31→22:18)
--- NOTE | 2024-06-05 15:58 | PT.IIE ---
Current Diagnoses Dislocation of internal left hip prosthesis, initial encounter (06/05/24) Presence of left artificial hip joint (06/05/24) Surgery Performed Operation Date: 06/05/24 10:45 Actual Procedures p Revision, total arthroplasty, hip, of the polyethylene liner and femoral head (left)(Left) - Jeanne Benedict MD Surgical History (Last Reviewed 06/05/24 @ 09:14 by Azeb Cutler, RN) History of carpal tunnel surgery of left wrist (~2021) History of carpal tunnel surgery of right wrist History of colonoscopy with polypectomy History of hysterectomy History of total left hip replacement (07/17/19) History of total right hip arthroplasty (12/04/14) Hx of bilateral cataract extraction Hx of cholecystectomy Hx of elbow surgery Hx of thumb surgery Status post epidural steroid injection Medical History (Last Reviewed 06/05/24 @ 09:14 by Azeb Cutler, AINSLEY) Ankle fracture (2023) Bilateral hip pain Cervical radiculopathy due to degenerative joint disease of spine Diabetes mellitus, type II Diverticulosis Hearing impaired Hip dislocation, left HLD (hyperlipidemia) HTN (hypertension) Lumbar spinal stenosis Lumbar stenosis with neurogenic claudication Medication side effect Memory changes Neuropathy Osteoarthritis Physical Therapy Inpatient Evaluation/Re-Eval M1 PT/OT-IP Prior Functional Status Start: 06/05/24 14:16 Freq: NEEDED Status: Active Protocol: Document 06/05/24 15:41 SAK (Rec: 06/05/24 15:58 [facility] [id number]) Medical Review Prior Functional Status Medical History Reviewed Yes Communication intact Mobility and Gait modified independent; has had 6 dislocations past few years Activities of Daily Living and IADL's indep Social History Household Members none Living Arrangements RV Number of Floors (Floors) One Floor Number of Stairs To Enter/Railing? 3, railing Home Environment Standard Height Toilet,Walk in Shower Home Equipment Front Wheel Walker,Quad Cane Employment Status Retired Additional Social History Comment Lives in [place]. Son in care center. States neighbors available to help including driving her to OP PT . M2 PT-IP Current Condition Start: 06/05/24 14:16 Freq: NEEDED Status: Active Protocol: Document 06/05/24 15:41 SAK (Rec: 06/05/24 15:58 [facility] [id number]) Physical Therapy Current Condition Current Condition Evaluation Date 06/05/24 Treatment Diagnosis s/p L posterior XIMENA revision Onset Date 06/05/24 M3 PT-IP Subjective Start: 06/05/24 14:16 Freq: NEEDED Status: Active Protocol: Document 06/05/24 15:41 SAK (Rec: 06/05/24 15:58 [facility] [id number]) Subjective Physical Therapy Visit Type Type Progress Note Visit Start Time 15:10 Visit Stop Time 15:43 Number of SALES REPRESENTATIVE PRINTING PAPER Visits 0 Physical Therapy Visit Comments Patient Comments Willing to do PT, reports minimal pain, hopes to go home tomorrow. Patient Goals Discharge home, has OP PT scheduled in [place] where she lives Therapy Pain Assessment Pain When Pain Assessed At Rest Pain Present Pain Present Pain Reported Location Left Hip Intensity 2 Pain Behaviors Wincing M4 PT-IP Mobility and Gait Start: 06/05/24 14:16 Freq: NEEDED Status: Active Protocol: Document 06/05/24 15:41 SAK (Rec: 06/05/24 15:58 [facility] [id number]) PT-Bed Mobility Assessment Supine to Sit Supine to Sit Moderate Assistance Sit to Supine Sit to Supine Minimal Assistance Scooting Scooting to Edge of Bed Standby Assistance PT-Transfer Assessment Sit to and From Stand Sit to and from Stand Contact Guard Assistance Equipment Transfer Assistive Device Gait Belt,Front Wheeled Walker Orthotic/Prosthetic Devices or Brace: No Transfers Transfer Destination Bed Transfer Technique Stand Step Pivot Transfer Ability Level of Assist Contact Guard Assistance Gait Assessment Gait Gait Assistance Required: Contact Guard Assist,1 Person Assist Distance (Feet) 40 Able to Maintain Weight Bearing Status Yes During Gait Assistive Devices Assistive Device Gait Belt,Front Wheeled Walker Gait Deviations General Gait Pattern Antalgic,Step-to Gait Factors Limiting Gait Function Factors Limiting Gait Function Pain Comments Gait Comments cues to turn by taking steps, not pivoting Stair Climbing Assessment Comments Stair Climbing Comments discussed practicing in am PT-Balance Assessment Sitting Balance and Reactions Static Sitting Balance Ability Good Dynamic Sitting Balance Ability Good Standing Balance and Reactions Static Standing Balance Ability Fair Dynamic Standing Balance Ability Fair Device Used FWW M5 PT-IP Objective Assessments Start: 06/05/24 14:16 Freq: NEEDED Status: Active Protocol: Document 06/05/24 15:41 [facility] (Rec: 06/05/24 15:58 [facility] [id number]) Orientation Orientation/Cognition Level of Alertness Alert Orientation Name,Age,Place,Situation Language Function Ability No Deficits Noted Safety Awareness Decreased Safety Awareness Memory Description Short Term Impaired Comments Patient unable to recall post XIMENA precautions after instruction and review Gross Range of Motion Upper Extremity ROM Assessment Within Functional Limits Lower Extremity ROM Assessment Within Functional Limits Strength Upper Extremity Strength Assessment Within Functional Limits Lower Extremity Strength Assessment Within Functional Limits Coordination Assessment Gross Coordination Gross Coordination WNL Sensation Assessment Sensation Gross Sensation WNL M6 PT-IP Treatment Start: 06/05/24 14:16 Freq: NEEDED Status: Active Protocol: Document 06/05/24 15:41 [facility] (Rec: 06/05/24 15:58 [facility] [id number]) Physical Therapy Treatment Exercises Exercises Ankle Pumps,Gluteal Sets,Quad Sets,Heel Slides,Supine Hip Abduction Education Education Provided Precautions,Safety Other Treatments Other Treatment Performed Instructed in post XIMENA verbally and with written HO. Patient will need further instruction for functional adherence. She has OP PT scheduled in [place] M7 PT-IP Assessment and Plan Start: 06/05/24 14:16 Freq: NEEDED Status: Active Protocol: Document 06/05/24 15:41 [facility] (Rec: 06/05/24 15:58 [facility] [id number]) PT Summary Assessment and Plan Potential Rehabilitation Potential Good Status of Condition at Evaluation Stable Summary Impairments Pain,Cognition,Gait Assessment Summary Patient seen for PT s/p left posterior XIMENA revision s/p 6 dislocations. Patient reporting minimal pain, instructed in HEP with good tolerance, indep with heel slide and hip abduction. Min assist bed mobility, CGA for gait in room with FWW with no LOB but required cues for turning by taking steps and not pivoting. Instructed pt. in post-op posterior XIMENA precautions, then observed patient cross her ankles in bed after pillow removed from between legs. Reviewed precautions 2 further times during session with patient having difficulty recalling. Concerned about potential for dislocation. Patient lives alone but has [employer] and neighbors to help including taking her to OP PT. Will need further review of XIMENA precautions with application to typical activities including gardening and quilting (last dislocated when bent to flower picker bobbin up from the floor while sitting). Goals Bed Mobility Goal Independent Transfer Goal Independent Gait Goal Independent,Front Wheel Walker Gait Distance 100 Other Goals independent ascend and descend with railing and SPC Days to Meet Goals 7 Frequency of Treatment Frequency Of Treatment Twice a Day Precautions Posterior Hip Precautions No Hip Flexion > 90 degrees,No Hip Internal Rotation,No Hip Adduction Weight Bearing Status Weight Bearing Status Weight Bear as Tolerated Recommendations To Nursing Amount of Assist Needed 1 Person Assist Discharge Recommendations PT Discharge Recommendations Home with Assistance, Outpatient PT Transportation Needs at Discharge Private Vehicle
[2024-06-05] MEDS: atenoloL 25 MG TABLET 50 MG PO (21:09)
[2024-06-05] MEDS: ASPIRIN EC 81 MG TABLET PO (21:09)
[2024-06-05] MEDS: AMLODIPINE 5 MG TABLET PO (21:09)
[2024-06-05] MEDS: DOCUSATE 100 MG CAPSULE PO (21:09)
[2024-06-05] MEDS: TRAZODONE 50 MG TABLET PO (21:09)
[2024-06-05] MEDS: ATORVASTATIN 20 MG TABLET 80 MG PO (21:09)
[2024-06-05] MEDS: MELATONIN 3 MG TABLET 9 MG PO (21:09)
[2024-06-06] VITALS: BP 101/44; PULSE 69; TEMP 36.4; O2SAT 92
[2024-06-06] MEDS: CEFAZOLIN 2 GM/100 ML PREMIX 100 ML IV (04:02)
[2024-06-06 04:25] LABS: Hematocrit 30.6 % (36-46); Hemoglobin 10.8 g/dL (12.0-16.0)
[2024-06-06] MEDS: ACETAMINOPHEN 325 MG TABLET 650 MG PO ×2 (07:02→18:32)
--- NOTE | 2024-06-06 07:28 | P.DS_ITS ---
History of Present Illness History of Present Illness Date Patient Seen: 06/06/24 Time Patient Seen: 07:28 Chief complaint: INPT Narrative: The patient has a history of a left total hip arthroplasty about 5 years ago. She also has a history of a spine fusion. She has had multiple episodes of instability in the left hip all of which have been posterior. She is failed extensive conservative treatment including bracing and significant activity modification. Non-operative management has failed and the patient has requested revision total hip replacement. The risks, benefits and alternatives to surgery were discussed with the patient prior to proceeding. Risks discussed included, but were not limited to, failure to relieve pain, leg length discrepancy, dislocation, stiffness, infection, nerve damage, deep venous thrombosis, pulmonary embolism, stroke, coma, heart attack, permanent paralysis and , as well as the potential need for eventual revision of the prosthetic. We also discussed that this likely will slightly lengthen her leg and make it a little bit tighter but she still needs to continue with posterior hip precautions. Discharge Providers Provider Date of admission: 06/05/24 08:28 Discharge Date: 06/06/24 Consults: 06/05/24 06:43 Consult to Anesthesiology Routine Comment: Consulting Provider: Anesthesiologist Reason for consultation: Regional block for post operative pain control Has provider been notified: No 06/05/24 13:49 Consult to Discharge Planning Routine Comment: Consult to Occupational Therapy Evaluate & Treat Comment: Physician Instructions: Evaluate and treat Consult to Physical Therapy Evaluate & Treat Comment: Physician Instructions: post op XIMENA protocol Discharge provider: Vadim Mcdonnell PA-C Summary Hospital Course Discharge Diagnosis: Left total hip arthroplasty with a history of multiple episodes of instability Hospital Course: Procedure: Revision left total hip arthroplasty with revision polyethylene and femoral head Same procedure as scheduled: Yes Surgeon: Jeanne Benedict Stationary Steam Engineer: Vadim Mcdonnell Anesthesia Type: Spinal Operative Notes Findings: No evidence of femoral or acetabular loosening, instability with flexion and internal rotation prior to revision at about 30? of internal rotation, improved stability after revision, stable in maximum external rotation, stable at 45? to about 80-90 degrees of internal rotation and 90? stable to 80? of internal rotation Closure Type: primary Specimen(s): none sent Prosthetic devices, grafts, tissues, transplants, or devices: Benedict and nephew 36 mm 20 degree by 50 mm lipped polyethylene, 36 x +0 Oxinium head Estimated Blood Loss (mL): 200 Blood products transfused: none Status at Discharge Cognitive/behavioral status at discharge: oriented Functional status at discharge: uses cane/walker Overall status at discharge: patient is back to baseline Time Spent with Patient Time spent: Less than 30 minutes Exam Vital Signs (past 8 hours): - 06/06/24 00:00 Temperature 97.6 F Pulse Rate 69 Blood Pressure 101/44 L Pulse Oximetry 92 Oxygen Flow Rate 0 Oxygen Delivery Method Room Air Oxygen Flow Rate 0 Narrative Exam Narrative: Patient's pain is controlled with oral medication. ?Pain is localized to surgical site. ?Patient declines any new numbness or tingling at the surgical extremity. ?Patient denies any shortness of breath, dizziness, light-headedness, nausea, vomiting, fever or chills. 5/5 strength in hip flexors, quadriceps, hamstrings, DF, PF, EHL bilaterally. Sensation to light touch intact throughout BLE. Calves soft, compressible, nontender. Dressing placed intraoperatively CDI. Resp Effort & Inspection: normal respiratory effort and able to speak in complete sentences Objective Labs 06/06/24 04:09 Labs: Laboratory Results - last 24 hr 06/05/24 06/06/24 09:30 04:09 Hgb 10.8 L Hct 30.6 L Blood Type A Positive Antibody Screen Negative [facility] Medical History Medication side effect Memory changes Lumbar stenosis with neurogenic claudication Cervical radiculopathy due to degenerative joint disease of spine Ankle fracture (2023) Hip dislocation, left Diverticulosis Hearing impaired Neuropathy HLD (hyperlipidemia) Lumbar spinal stenosis Osteoarthritis Bilateral hip pain HTN (hypertension) Diabetes mellitus, type II Surgical History History of carpal tunnel surgery of left wrist (~2021) 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 Hold hypertensive medications. Discharge to home. ? Posterior Hip Pre-cautions. Ambulate and weight bear as tolerated with assistive devices. ? Aspirin 81 mg twice a day for 6 weeks for DVT prevention. ? Baseline pain relief with acetaminophen 500mg every 4 hours as needed and ibuprofen 400 mg every 4 hours as needed. ?Patient declined narcotic pain relievers. Initiate physical therapy in the next 5-10 days. ? Keep dressing clean and dry. Keep dressing on until first office visit. If dressing becomes dirty or disrupted, replace with appropriate sized dressing. Follow up in clinic in 2 weeks for wound check. Contact clinic if there are any questions or concerns. Discharge Plan Discharge Plan Patient Disposition: Home Discharge orders & Medications Prescriptions: New aspirin 81 mg Tablet,Delayed Release (Dr/Ec) 81 mg PO BID Qty: 90 0RF Continued donepezil 5 mg Tablet 5 mg PO DAILY trazodone 50 mg Tablet 50 mg PO BEDTIME rosuvastatin 40 mg Tablet 40 mg PO DAILY amlodipine 5 mg Tablet 5 mg PO BEDTIME acetaminophen [Tylenol Extra Strength] 500 mg Tablet 1,000 mg PO DAILY glimepiride 2 mg Tablet 2 mg PO QAM lisinopril 40 mg Tablet 40 mg PO DAILY atenolol 50 mg Tablet 50 mg PO BID melatonin 10 mg Tablet 10 mg PO BEDTIME Diet/Activity/Treatments Diet: Diet as Tolerated Activity: Ambulate multiple times a day. Use a cane or walker as needed. Full weight on leg. Cold/Heat Therapy: Use ice multiple times a day. Skin/Wound/Dressing Care Report to your healthcare provider any signs of infection, such as:: chills, fever, night sweats, unusual drainage and unusual redness Dressing: May shower. Leave dressing in place until follow up in office. No bathing or otherwise soaking incision. Call the office if the dressing becomes saturated inside. Visit Report/Discharge Packet Instructions: DI for Hip Replacement, DI for Prescription Opioid Use Stand Alone Forms: Patient Portal/API, Stroke Signs & Symptoms, Surgery Discharge Quality VTE Deep Vein Thrombosis/Pulmonary Embolism Present on Admission: No
[2024-06-06 08:00] VITALS: BP 121/51; PULSE 61; RESP 18; TEMP 36.6; O2SAT 94
[2024-06-06 09:11] VITALS: BP 126/59; PULSE 66
[2024-06-06] MEDS: DONEPEZIL 5 MG TABLET PO (09:17)
[2024-06-06] MEDS: DOCUSATE 100 MG CAPSULE PO ×2 (09:17→20:43)
[2024-06-06] MEDS: IBUPROFEN 400 MG TABLET PO (09:17)
[2024-06-06] MEDS: ASPIRIN EC 81 MG TABLET PO ×2 (09:17→20:44)
--- NOTE | 2024-06-06 09:30 | PT.IPTN ---
Current Diagnoses Dislocation of internal left hip prosthesis, initial encounter (06/05/24) Presence of left artificial hip joint (06/05/24) Surgery Performed Operation Date: 06/05/24 10:45 Actual Procedures p Revision, total arthroplasty, hip, of the polyethylene liner and femoral head (left)(Left) - Jeanne Benedict MD Physical Therapy Treatment Note M2 PT-IP Current Condition Start: 06/05/24 14:16 Freq: NEEDED Status: Active Protocol: Document 06/05/24 15:41 [facility]AK (Rec: 06/05/24 15:58 [facility] [id number]) Physical Therapy Current Condition Current Condition Evaluation Date 06/05/24 Treatment Diagnosis s/p L posterior XIMENA revision Onset Date 06/05/24 M3 PT-IP Subjective Start: 06/05/24 14:16 Freq: NEEDED Status: Active Protocol: Document 06/06/24 09:30 AB (Rec: 06/06/24 12:19 AB [id number]) Subjective Physical Therapy Visit Type Type Treatment Note Visit Start Time 09:30 Visit Stop Time 10:15 Number of RUBBISH COLLECTION SUPERVISOR Visits 0 Physical Therapy Visit Comments Patient Comments agreeable to do PT Therapy Pain Assessment Pain When Pain Assessed At Rest Pain Present Pain Present Pain Reported Location Left Hip Intensity 1 Scale Used Numeric (0 - 10) Pain Management Techniques Distraction,Modification of Treatment,Re-positioning, Timing of Activity with Medications M4 PT-IP Mobility and Gait Start: 06/05/24 14:16 Freq: NEEDED Status: Active Protocol: Document 06/06/24 09:30 AB (Rec: 06/06/24 12:19 AB [id number]) PT-Bed Mobility Assessment Supine to Sit Supine to Sit Moderate Assistance Sit to Supine Sit to Supine Standby Assistance PT-Transfer Assessment Sit to and From Stand Sit to and from Stand Contact Guard Assistance,1 Person Assistance,Use of Upper Extremities Equipment Transfer Assistive Device Gait Belt,Front Wheeled Walker Orthotic/Prosthetic Devices or Brace: No Transfers Transfer Destination Bed,Chair Transfer Technique ambulated Transfer Ability Level of Assist Contact Guard Assistance,1 Person Assistance,Use of Upper Extremities Comments Mobility Comments pt standing by the sink with OT. PT took over pt's care. pt ambulated from the sink to the chair using fWW CGA. cued for hip precautions. pt recalled 2/3 precautions but has confusion and in consistent with recalling. educated pt again on posterior hip precautions. pt completed sit to stand CGA and cued to position LLE forward for posterior hip precautions. pt needing cues with hip precautions throughout PT session. pt ambulated in room using fWW ~ 30 ft SBA to CGA. pt sat on EOB. completed sit to supine SBA but with max cues for precautions and techniques. pt completed supine to sit mod A and max cues. sit to stand cGA and cues and ambulated more in the room ~ 30 ft using FWW SBA to CGA. pt sat on chair. positioned pt on the chair. call light and table placed within reach. informed pt regarding current assistance needed and agreed to go to SNF. Gait Assessment Gait Gait Assistance Required: Standby Assistance,Contact Guard Assist Distance (Feet) 30 Able to Maintain Weight Bearing Status Yes During Gait Assistive Devices Assistive Device Gait Belt,Front Wheeled Walker Orthotic/Prosthetic Devices or Brace: No Gait Deviations General Gait Pattern Antalgic,Decreased Stride Length,Decreased Feet Clearance Factors Limiting Gait Function Factors Limiting Gait Function Decreased Activity Tolerance, Decreased Strength,Difficulty Following Directions,Limited Range of Motion,Pain,Poor Balance,Poor Safety Awareness M5 PT-IP Objective Assessments Start: 06/05/24 14:16 Freq: NEEDED Status: Active Protocol: Document 06/05/24 15:41 [facility]AK (Rec: 06/05/24 15:58 [facility] [id number]) Orientation Orientation/Cognition Level of Alertness Alert Orientation Name,Age,Place,Situation Language Function Ability No Deficits Noted Safety Awareness Decreased Safety Awareness Memory Description Short Term Impaired Comments Patient unable to recall post XIMENA precautions after instruction and review Gross Range of Motion Upper Extremity ROM Assessment Within Functional Limits Lower Extremity ROM Assessment Within Functional Limits Strength Upper Extremity Strength Assessment Within Functional Limits Lower Extremity Strength Assessment Within Functional Limits Coordination Assessment Gross Coordination Gross Coordination WNL Sensation Assessment Sensation Gross Sensation WNL M6 PT-IP Treatment Start: 06/05/24 14:16 Freq: NEEDED Status: Active Protocol: Document 06/06/24 09:30 AB (Rec: 06/06/24 12:19 AB [id number]) Physical Therapy Treatment Education Education Provided Precautions,Safety M7 PT-IP Assessment and Plan Start: 06/05/24 14:16 Freq: NEEDED Status: Active Protocol: Document 06/06/24 09:30 AB (Rec: 06/06/24 12:19 AB [id number]) PT Summary Assessment and Plan Potential Rehabilitation Potential Fair Summary Impairments Pain,ROM,Strength,Balance, Coordination,Sensation,Tone, Cognition,Bed Mobility, Transfers,Gait,Activity Tolerance Progress Towards Goals Slow Progress - Other Assessment Summary pt requiring mod A for bed mobility, CGA for transfers and SBA to CGA for ambulation using FWW but needed max cues with all tasks to maintain posterior hip precautions. pt with memory issues and unable to recall and carryover hip precautions during mobility. pt will require 24/7 assist and will benefit from SNF rehab. Goals Bed Mobility Goal Independent Transfer Goal Independent Gait Goal Independent,Front Wheel Walker Gait Distance 100 Other Goals independent ascend and descend SPC/ HEALTH THERAPIST Days to Meet Goals 10 Frequency of Treatment Frequency Of Treatment Twice a Day Treatment Plan Physical Therapy Treatment Plan Bed Mobility Training,Transfer Training,Gait Training, Therapeutic Exercise,Balance Retraining,Post Op Education, Discharge Planning,Hot or Cold Pack,Neuromuscular Re-ed, Coordination Retraining,Manual Therapy Precautions Posterior Hip Precautions No Hip Flexion > 90 degrees,No Hip Internal Rotation,No Hip Adduction Weight Bearing Status Weight Bearing Status Weight Bear as Tolerated Allowed Weight Bearing Amount (enter % LLE WBAT or #) (%) Recommendations To Nursing Amount of Assist Needed 1 Person Assist Discharge Recommendations PT Discharge Recommendations SNF Rehab Transportation Needs at Discharge Private Vehicle,Wheelchair/ Cabulance - PT assist 1
--- NOTE | 2024-06-06 09:40 | OT.IP.EVAL ---
Addendum entered and electronically signed by Jana Briceno OT 06/06/24 10:29: esign Original Note: Current Diagnoses Dislocation of internal left hip prosthesis, initial encounter (06/05/24) Presence of left artificial hip joint (06/05/24) Surgery Performed Operation Date: 06/05/24 10:45 Actual Procedures p Revision, total arthroplasty, hip, of the polyethylene liner and femoral head (left)(Left) - Jeanne Benedict MD Past Medical History (Last Reviewed 06/05/24 @ 09:14 by Azeb Cutler, AINSLEY) Ankle fracture (2023) Bilateral hip pain Cervical radiculopathy due to degenerative joint disease of spine Diabetes mellitus, type II Diverticulosis Hearing impaired Hip dislocation, left HLD (hyperlipidemia) HTN (hypertension) Lumbar spinal stenosis Lumbar stenosis with neurogenic claudication Medication side effect Memory changes Neuropathy Osteoarthritis Surgical History (Last Reviewed 06/05/24 @ 09:14 by Azeb Cutler, AINSLEY) History of carpal tunnel surgery of left wrist (~2021) History of carpal tunnel surgery of right wrist History of colonoscopy with polypectomy History of hysterectomy History of total left hip replacement (07/17/19) History of total right hip arthroplasty (12/04/14) Hx of bilateral cataract extraction Hx of cholecystectomy Hx of elbow surgery Hx of thumb surgery Status post epidural steroid injection Occupational Therapy Inpatient Evaluation/Re-Eval M1 PT/OT-IP Prior Functional Status Start: 06/05/24 14:16 Freq: NEEDED Status: Active Protocol: Document 06/06/24 10:08 [facility] (Rec: 06/06/24 10:24 [facility] Desktop) Medical Review Prior Functional Status Medical History Reviewed Yes Communication intact Mobility and Gait modified independent; has had 6 dislocations past few years Activities of Daily Living and IADL's indep Social History Household Members none Living Arrangements RV Number of Floors (Floors) One Floor Number of Stairs To Enter/Railing? 3, railing Home Environment Standard Height Toilet,Walk in Shower Home Equipment Front Wheel Walker,Quad Cane Employment Status Retired Additional Social History Comment Lives in [place]. Son in care center. States neighbors available to help including driving her to OP PT . M2 OT-IP Current Condition Start: 06/06/24 10:07 Freq: Status: Active Protocol: Document 06/06/24 10:08 [facility] (Rec: 06/06/24 10:24 [facility] Desktop) Occupational Therapy Current Condition Current Condition Evaluation Date 06/06/24 Treatment Diagnosis S/P L XIMENA revision Diagnosis Onset Date 06/05/24 Post Operative Precautions Posterior Hip Precautions No Hip Flexion > 90 degrees,No Hip Internal Rotation,No Hip Adduction M3 OT- IP Subjective and Pain Start: 06/06/24 10:07 Freq: Status: Active Protocol: Document 06/06/24 10:08 [facility] (Rec: 06/06/24 10:24 [facility] Desktop) OT- Subjective Occupational Therapy Visit Type Type Initial Evaluation Visit Start Time 09:00 Visit Stop Time 09:40 Occupational Therapy Visit Comments Patient Comments Pt agreed to get up. Patient/Caregiver Goals TO get better. OT Pain Assessment Pain When Pain Assessed At Rest Pain Present Pain Present Denied Pain M4 OT- IP ADL's Start: 06/06/24 10:07 Freq: Status: Active Protocol: Document 06/06/24 10:08 [facility] (Rec: 06/06/24 10:24 [facility] Desktop) OT VIV-Xqtj-Fyqvitn Comments OT Self-Feeding Comments NOt at meal time. OT ADL-Grooming General Evaluation Grooming Ability Standby Assistance Areas Needing Assistance Retrieving/Set-up of Grooming Items Comments OT Grooming Comments Pt needing set-up assist but able to do while standing with FWW. OT ADL-Oral Care General Eval Oral Care Ability Independent OT ADL-Dressing General Eval Lower Body Dressing Ability Maximum Assistance Comments OT Dressing Comments Pt not aware that she is not to bend over in order to do LB dressing needs. Practiced and educated pt on use of LB dressing equipment. Also to dress the LLE first and take out last. Pt will benefit from more practice. OT ADL-Toileting General Evaluation Toileting Ability Moderate Assistance Areas Needing Assistance Manage Clothing,Perform Perineal Hygiene Comments OT Toileting Comments Pt trying to wipe from the front and having to stop pt as would be bending forwards too , and better to stand and wipe. OT ADL-Bathing Comments OT Bathing Comments Pt states just sponges off at home. M5 OT- IP IADL's Start: 06/06/24 10:07 Freq: Status: Active Protocol: Document 06/06/24 10:08 [facility] (Rec: 06/06/24 10:24 [facility] Desktop) OT-Instrumental Activities of Daily Living Home Safety Awareness Awareness of Need for Assistance at Home Decreased Awareness Home Safety Comments Pt is very forgetful and per nursing has early dementia. Medication Management Medication Management Comments At this time best for pt to have assist. Money Management Money Management Comments Best for pt to have assist. Meal Preparation Meal Preparation Comments Pt will need help. Advance Seal Delivery System Maintainer Advance Seal Delivery System Maintainer Comments Pt will need help. M6 OT- IP Functional Cognition Start: 06/06/24 10:07 Freq: Status: Active Protocol: Document 06/06/24 10:08 [facility] (Rec: 06/06/24 10:24 [facility] Desktop) Cognitive Factors Limiting Selfcare Function Cognitive Ability Level of Alertness Alert Patient Orientation Name,Place,Situation Attention Span Ability Capable of Focused Attention, Capable of Sustained Attention Ability to Follow Commands Able to Follow One Step Commands with Increased Time, Able to Follow One Step Commands with Repetition Memory Description Short Term Impaired Cognitive Comments Cognitive Assessment Comments Pt not able to recall all of her hip precautions 1/3. Pt having difficulty to incorporate them from ADL and mobility needs and needing constant reminders to follow her hip precautions. OT- Vision and Hearing OT- Hearing Assessment OT- Hearing Assessment WFL OT- Vision Assessment Visual Acuity Glasses For Reading Visual Attentiveness WFL Occular Pursuits WFL M7 OT- IP Mobility and Balance Start: 06/06/24 10:07 Freq: Status: Active Protocol: Document 06/06/24 10:08 [facility] (Rec: 06/06/24 10:24 [facility] Desktop) OT- Bed Mobility Assessment Supine to Sit Supine to Sit Assist Moderate Assistance Sit to Supine Sit to Supine Assist Minimal Assistance OT-Transfer Assessment Sit to and From Stand Sit to and from Stand Contact Guard Assistance Transfers Transfer Ability Contact Guard Assistance, Minimal Assistance Technique Transfer Destination Bed,Chair,Toilet Transfer Technique Stand Step Pivot Devices Transfer Assistive Devices Gait Belt,Front Wheeled Walker Comments Mobility Comments MOD A for bed mobility and pt in use to getting out on the right side of her bed. Pt tends to roll and internally rotate her left hip and therefore having to show her new technique. Pt has a weak core and BUE strength and therefore needing MODA to help get her up to the edge of the bed. CGA to FREDY to stand to the FWW. VC to keep the FWW in front of her at all times. OT- Balance Assessment Sitting Balance and Reactions Static Sitting Balance Ability Good Dynamic Sitting Balance Ability Good Standing Balance and Reactions Static Standing Balance Ability Fair Dynamic Standing Balance Ability Fair M8 OT- IP Objective Assessments Start: 06/06/24 10:07 Freq: Status: Active Protocol: Document 06/06/24 10:08 [facility] (Rec: 06/06/24 10:24 [facility] Desktop) OT Gross Range of Motion Upper Extremity Range of Motion ROM Impairments grossly WFL OT Strength Upper Extremity Strength Assessment Bilaterally Impaired OT-Muscle Tone Assessment Comments Muscle Tone Comments Noted tremor with right hand. M9 OT- IP Assessment and Plan Start: 06/06/24 10:07 Freq: Status: Active Protocol: Document 06/06/24 10:08 [facility] (Rec: 06/06/24 10:24 [facility] Desktop) OT Summary Assessment and Plan Potential Rehabilitation Potential Good Analytic Complexity at Evaluation Low Summary OT Impairments Pain,Balance,Functional Cognition,Functional Mobility, Grooming,Dressing,Toileting, Bathing,Toilet Transfers, Shower Transfers,Activity Tolerance Progress Towards Goals Progressing Toward Goals,Slow Progress due to Cognition Assessment Summary Pt low complexity and main barriers are decreased ability to recall and incorporate her hip precautions. In addition pt has decreased trunk and BUE weakness and unable to get out of bed without assist. Per pt has had 6 dislocations in the past few years. Pt will greatly benefit from skilled rehab to work on continuous practice with hip precautions for ADL and mobility needs. At this time if pt were to go home she would be a high risk to dislocate her hip again. Goals Self-Feeding Goal Independent Grooming Goal Independent Dressing Goal Independent,Inspector Insulation,Sock Aid Bathing Goal Independent,Standby Assistance Toilet Transfer Goal Independent Shower Transfer Goal Independent Days to Meet Goals 15 Frequency of Treatment Other frequency 5x/week Treatment Plan OT Treatment Plan ADL Training,Functional Cognition Training,Functional Mobility,Patient/Family Education,Discharge Planning Other Treatment Recommendations and Next Practice LB dressing equipment Treatment Focus . Discharge Recommendations OT Discharge Recommendations SNF Rehab Transportation Needs at Discharge Wheelchair/Cabulance
--- NOTE | 2024-06-06 11:44 | CM.DANOTE ---
Addendum entered by LUIS Wilhelm 06/06/24 12:46: DCP SNF Update: DCP re-entered room and discussed COVID precautions at [facility]. Pt agreeable to starting insurance authorization at [facility] and participating in Rehab there. DCP notified [facility] Admissions and will begin insurance authorization request with pt insurance. Plan: Possible transfer to [facility] this weekend 06/07-06/08, pending authorization. SMITH Landa Original Note: DCP Assessment Note: Pt is a 83yo female, resident of [place], is s/p Total Hip revision. Pt lives in an on her son's property. Her son currently resides at [facility] in [place]. Pt's Primary Care Provider is Dr. Linda Parrish and insurance is [facility] Medicare. Reviewed chart and discussed with multidisciplinary team pt's medical status and initial discharge needs. DCP met w/patient at bedside; introduced self and role. Patient was found in bed, alert and oriented, cooperative with assessment. Pt confirmed living situation and good support in friends/neighbors. Pt expressed preference in SNF Rehab before dc home. Pt has a hx of SNF but could not recall the name, believes it was in [place]. Pt agreeable to working with therapies and following their recommendations. Pt consented to this DCP to send referral to SNF in [facility]. Pt requested this DCP to call [facility] in [place] to notify change in plans for SNF Rehab before dc home. DCP called [facility] and relayed information. Per PT who saw pt after surgery on 06/05, recommending home health. Per OT who saw pt on 06/06, recommending SNF Rehab. DCP sent initial referral to [facility]. Per [facility] Admissions, pt has been accepted for Rehab, pending insurance authorization. Could be accepted this weekend if insurance auth processes. Also wanted to have pt made aware of some COVID cases in their facility, DCP to follow up with [facility] after pt notified. PASRR initiated, will need MD signature for hospital exempt discharge due to trazadone Rx. Plan: Anticipating SNF Rehab pending acceptance at a facility. CM team will follow closely for coordination of discharge plans. SMITH Landa Discharge Planning/Care Management CM Discharge Assessment Start: 06/06/24 11:39 Freq: Status: Active Protocol: Document 06/06/24 11:39 [facility] (Rec: 06/06/24 11:43 [facility] [id number]) Discharge Planning Assessment Assigned Rinkman LUIS Sethi DPOA/Assigned Designee Name Jose Taylor Contact Information [phone] Advance Directives? Yes Advance Directives on File Yes History Provided By Patient,Medical Record Has Patient been admitted in last 30 No days? Prior Living Arrangements RV Comment Lives on her son's property, son lives at [facility]) in [place]. Household Members none Type of transporation used prior to Relies on Others admit Independent with ADL's Yes: Moderately, needs more assistive devices (ramp, grabber) Is patient alert and oriented? Yes Needs Assistance With Home Chores / Shopping Caregiver for Another No DME Already Rented / Owned FWW / Walker Patient/Family Preference Shelter Facility Barriers to Discharge No Discharge Plan Shelter Facility Transportation Arrangement Facility vs. Friend transport Referrals Initiated Shelter Additional Comment [facility] If patient plan is home with home health No : Has signed face to face form been completed? If patient plan is SNF: Has PASSR been Yes completed? Inpatient Status as of 06/05/24 Medicare Choice List Provided Yes Medicare choice list reviewed on patient electronic tablet with SNF/HH Preference Where I went last time, I think it's in [place] No SNF hx identified in EMR, possibly from a different facility? Has Agency SNF been contacted Yes Comment Sent referral to [facility] Whiteboard Updated in Patient Room with Yes name and ext. # of Rinkman Comment [phone] Review Status In Process Please Provide Date Initial DC 06/06/24 Assessment Was Performed Next Review Type Continued Stay Review
--- NOTE | 2024-06-06 14:55 | PT.IPTN ---
Current Diagnoses Dislocation of internal left hip prosthesis, initial encounter (06/05/24) Presence of left artificial hip joint (06/05/24) Surgery Performed Operation Date: 06/05/24 10:45 Actual Procedures p Revision, total arthroplasty, hip, of the polyethylene liner and femoral head (left)(Left) - Jeanne Benedict MD Physical Therapy Treatment Note M2 PT-IP Current Condition Start: 06/05/24 14:16 Freq: NEEDED Status: Active Protocol: Document 06/05/24 15:41 [facility] (Rec: 06/05/24 15:58 [facility] [id number]) Physical Therapy Current Condition Current Condition Evaluation Date 06/05/24 Treatment Diagnosis s/p L posterior XIMENA revision Onset Date 06/05/24 M3 PT-IP Subjective Start: 06/05/24 14:16 Freq: NEEDED Status: Active Protocol: Document 06/06/24 14:55 [facility] (Rec: 06/06/24 16:51 AB [id number]) Subjective Physical Therapy Visit Type Type Treatment Note Visit Start Time 14:55 Visit Stop Time 15:45 Number of INSURANCE COUNSELOR Visits 0 Physical Therapy Visit Comments Patient Comments agreeable to do PT Therapy Pain Assessment Pain When Pain Assessed At Rest Pain Present Pain Present Pain Reported Location Left Hip Intensity 1 Scale Used Numeric (0 - 10) Pain Management Techniques Modification of Treatment,Re- positioning M4 PT-IP Mobility and Gait Start: 06/05/24 14:16 Freq: NEEDED Status: Active Protocol: Document 06/06/24 14:55 [facility] (Rec: 06/06/24 16:51 AB [id number]) PT-Bed Mobility Assessment Supine to Sit Supine to Sit Minimal Assistance Sit to Supine Sit to Supine Minimal Assistance PT-Transfer Assessment Sit to and From Stand Sit to and from Stand Contact Guard Assistance,1 Person Assistance,Use of Upper Extremities Equipment Transfer Assistive Device Gait Belt,Front Wheeled Walker Orthotic/Prosthetic Devices or Brace: No Transfers Transfer Destination Toilet Transfer Technique ambulated Transfer Ability Level of Assist Contact Guard Assistance,1 Person Assistance Comments Mobility Comments pt in bed and agreeable to do PT. reviewed hip precautions and pt recalled 2/3. supine to sit min A and max cues. sit to stand from EOB CGA and max cues for hip precautions. pt continues to forget on how to position LLE to adhere to hip precautions for sit to stand. pt ambulated in the room ~ 50 ft using FWW CGA. pt sat on the chair. completed sit<>stand x 4 with max cues. continues to forget techniques. pt completed seated glute sets and LAQs with 5 sec hold. pt requested to use the toilet. sit to stand from chair CGA and needed cues again to bring LLE forward. ambulated to the toilet CGA. pt required assistance with hygiene care and brief management. CGA for standing balance and max cues for safety and precautions. sit to stand from the toilet CGA and max cues and pt ambulated towards the sink using FWW CGA. pt able to stand by the sink CGA while completing handwashing. pt requested to go back to the bed. ambulated to the bed CGA using FWW. sit to supine min A and max cues. pt tends to twist and move LLE past midline requiring PT to maintain LLE alignment. positioned pt on the bed. call light and table placed within reach. Gait Assessment Gait Gait Assistance Required: Contact Guard Assist Distance (Feet) 50 Able to Maintain Weight Bearing Status Yes During Gait Assistive Devices Assistive Device Gait Belt,Front Wheeled Walker Orthotic/Prosthetic Devices or Brace: No Gait Deviations General Gait Pattern Decreased Stride Length, Decreased Feet Clearance Factors Limiting Gait Function Factors Limiting Gait Function Decreased Activity Tolerance, Decreased Strength,Difficulty Following Directions,Limited Range of Motion,Pain,Poor Balance,Poor Safety Awareness M5 PT-IP Objective Assessments Start: 06/05/24 14:16 Freq: NEEDED Status: Active Protocol: Document 06/05/24 15:41 [facility] (Rec: 06/05/24 15:58 [facility] [id number]) Orientation Orientation/Cognition Level of Alertness Alert Orientation Name,Age,Place,Situation Language Function Ability No Deficits Noted Safety Awareness Decreased Safety Awareness Memory Description Short Term Impaired Comments Patient unable to recall post XIMENA precautions after instruction and review Gross Range of Motion Upper Extremity ROM Assessment Within Functional Limits Lower Extremity ROM Assessment Within Functional Limits Strength Upper Extremity Strength Assessment Within Functional Limits Lower Extremity Strength Assessment Within Functional Limits Coordination Assessment Gross Coordination Gross Coordination WNL Sensation Assessment Sensation Gross Sensation WNL M6 PT-IP Treatment Start: 06/05/24 14:16 Freq: NEEDED Status: Active Protocol: Document 06/06/24 14:55 [facility] (Rec: 06/06/24 16:51 [facility] [id number]) Physical Therapy Treatment Exercises Exercises Gluteal Sets Education Education Provided Precautions,Safety M7 PT-IP Assessment and Plan Start: 06/05/24 14:16 Freq: NEEDED Status: Active Protocol: Document 06/06/24 14:55 [facility] (Rec: 06/06/24 16:51 AB [id number]) PT Summary Assessment and Plan Potential Rehabilitation Potential Good Summary Impairments Pain,ROM,Strength,Balance, Coordination,Sensation,Tone, Cognition,Bed Mobility, Transfers,Gait,Activity Tolerance Progress Towards Goals Slow Progress - Other Assessment Summary pt progressing slowly with mobility requiring min A for bed mobility, CGA for ambulation using FWW but continues to require max cues to adhere to precautions and safety. pt will benefit from SNF rehab to improve strength and independence. Goals Bed Mobility Goal Independent Transfer Goal Independent Gait Goal Independent,Front Wheel Walker Gait Distance 100 Other Goals independent ascend and descend SPC/ MEAT DEPARTMENT MANAGER Days to Meet Goals 10 Frequency of Treatment Frequency Of Treatment Twice a Day Treatment Plan Physical Therapy Treatment Plan Bed Mobility Training,Transfer Training,Gait Training, Therapeutic Exercise,Balance Retraining,Post Op Education, Discharge Planning,Hot or Cold Pack,Neuromuscular Re-ed, Coordination Retraining,Manual Therapy Precautions Posterior Hip Precautions No Hip Flexion > 90 degrees,No Hip Internal Rotation,No Hip Adduction Weight Bearing Status Weight Bearing Status Weight Bear as Tolerated Allowed Weight Bearing Amount (enter % LLE WBAT or #) (%) Recommendations To Nursing Amount of Assist Needed 1 Person Assist Discharge Recommendations PT Discharge Recommendations SNF Rehab Transportation Needs at Discharge Private Vehicle,Wheelchair/ Cabulance - PT assist 1
[2024-06-06 20:00] VITALS: BP 129/57; PULSE 81; RESP 18; TEMP 37.3; O2SAT 91
[2024-06-06] MEDS: MELATONIN 3 MG TABLET 9 MG PO (20:42)
[2024-06-06] MEDS: TRAZODONE 50 MG TABLET PO (20:43)
[2024-06-06] MEDS: ATORVASTATIN 20 MG TABLET 80 MG PO (20:43)
[2024-06-06] MEDS: atenoloL 25 MG TABLET 50 MG PO (20:43)
[2024-06-06] MEDS: AMLODIPINE 5 MG TABLET PO (20:43)
[2024-06-07] MEDS: ACETAMINOPHEN 325 MG TABLET 650 MG PO ×3 (07:50→21:18)
[2024-06-07 08:00] VITALS: BP 140/48; PULSE 59; RESP 17; TEMP 37.3; O2SAT 97
[2024-06-07 08:30] VITALS: BP 140/48; PULSE 59
[2024-06-07] MEDS: DOCUSATE 100 MG CAPSULE PO ×2 (08:31→21:16)
[2024-06-07] MEDS: DONEPEZIL 5 MG TABLET PO (08:31)
[2024-06-07] MEDS: ASPIRIN EC 81 MG TABLET PO ×2 (08:31→21:16)
--- NOTE | 2024-06-07 08:34 | P.PN_ITS ---
Subjective Subjective Interval history: Patient's pain is controlled with oral medication. Pain is localized to surgical site. Patient declines any new numbness or tingling at the surgical extremity. Patient denies any shortness of breath, dizziness, light-headedness, nausea, vomiting, fever or chills. She has been working with physical therapy. She is able to ambulate with walker and able to urinate in bathroom. Exam Vital Signs (past 8 hours): - 06/07/24 08:30 Pulse Rate 59 L Blood Pressure 140/48 L Oxygen Delivery Method Room Air Oxygen Flow Rate 0 Narrative Exam Narrative: 5/5 strength in hip flexors, quadriceps, hamstrings, DF, PF, EHL bilaterally. Sensation to light touch intact throughout BLE. Calves soft, compressible, nontender. Dressing placed intraoperatively CDI. Resp Effort & Inspection: normal respiratory effort and able to speak in complete sentences Objective Labs 06/06/24 04:09 [facility] Medical History Medication side effect Memory changes Lumbar stenosis with neurogenic claudication Cervical radiculopathy due to degenerative joint disease of spine Ankle fracture (2023) Hip dislocation, left Diverticulosis Hearing impaired Neuropathy HLD (hyperlipidemia) Lumbar spinal stenosis Osteoarthritis Bilateral hip pain HTN (hypertension) Diabetes mellitus, type II Surgical History History of carpal tunnel surgery of left wrist (~2021) History of total left hip replacement (07/17/19) History of colonoscopy with polypectomy Hx of bilateral cataract extraction History of carpal tunnel surgery of right wrist Status post epidural steroid injection Hx of thumb surgery Hx of cholecystectomy Hx of elbow surgery History of hysterectomy History of total right hip arthroplasty (12/04/14) Social History household members: none Smoking Status: Never smoker alcohol intake: never Assessment & Plan Post-op Postoperative Procedures: Procedures Operation Date: 06/05/24 10:45 Actual Procedure Side Surgeon p Revision, total arthroplasty, hip, of the polyethylene liner and femoral head (left) Left Jeanne Benedict MD Postoperative day: 2 Postoperative status: doing well Postoperative plan: routine post-op care and ambulate Postoperative plan narrative: PT recommendations to discharge to SNF due to currently requiring 1 person assist and the patient lives at home alone. Also it was observed that the patient has difficulty following and remembering instructional cues and hip precautions. Posterior Hip Pre-cautions. Ambulate and weight bear as tolerated with assistive devices. Aspirin 81 mg twice a day for 6 weeks for DVT prevention. Baseline pain relief with acetaminophen 500mg every 4 hours as needed and ibuprofen 400 mg every 4 hours as needed. Initiate physical therapy in the next 5-10 days. Keep dressing clean and dry. Keep dressing on until first office visit. If dressing becomes dirty or disrupted, replace with appropriate sized dressing. Follow up in clinic in 2 weeks for wound check. Contact clinic if there are any questions or concerns. Time Spent With Patient Time with patient: less than 15 minutes Quality VTE Deep Vein Thrombosis/Pulmonary Embolism Present on Admission: No
--- NOTE | 2024-06-07 09:05 | PT.IPTN ---
Current Diagnoses Dislocation of internal left hip prosthesis, initial encounter (06/05/24) Presence of left artificial hip joint (06/05/24) Surgery Performed Operation Date: 06/05/24 10:45 Actual Procedures p Revision, total arthroplasty, hip, of the polyethylene liner and femoral head (left)(Left) - Jeanne Benedict MD Physical Therapy Treatment Note M2 PT-IP Current Condition Start: 06/05/24 14:16 Freq: NEEDED Status: Active Protocol: Document 06/05/24 15:41 SAK (Rec: 06/05/24 15:58 SAK [id number]) Physical Therapy Current Condition Current Condition Evaluation Date 06/05/24 Treatment Diagnosis s/p L posterior XIMENA revision Onset Date 06/05/24 M3 PT-IP Subjective Start: 06/05/24 14:16 Freq: NEEDED Status: Active Protocol: Document 06/07/24 09:05 AB (Rec: 06/07/24 11:37 AB Desktop) Subjective Physical Therapy Visit Type Type Treatment Note Visit Start Time 09:05 Visit Stop Time 09:40 Number of APARTMENT ASSISTANT MANAGER Visits 0 Physical Therapy Visit Comments Patient Comments agreeable to do PT Therapy Pain Assessment Pain Present Pain Present Denied Pain M4 PT-IP Mobility and Gait Start: 06/05/24 14:16 Freq: NEEDED Status: Active Protocol: Document 06/07/24 09:05 AB (Rec: 06/07/24 11:37 AB Desktop) PT-Bed Mobility Assessment Supine to Sit Supine to Sit Maximum Assistance PT-Transfer Assessment Sit to and From Stand Sit to and from Stand Standby Assistance,Contact Guard Assistance Equipment Transfer Assistive Device Gait Belt,Front Wheeled Walker Orthotic/Prosthetic Devices or Brace: No Transfers Transfer Destination Chair,Toilet Transfer Technique ambulated Transfer Ability Level of Assist Standby Assistance,Contact Guard Assistance,1 Person Assistance,Use of Upper Extremities Comments Mobility Comments pt in bed and agreeable to do PT. reviewed hip precautions and pt recalled 1/3. supine to sit max A and max cues. sit to stand CGA and ambulated in room using FWW ~ 75 ft SBA to occasional CGA. cues for safety. pt sat on the chair and continues to require cues for hip precautions. Transfer training: completed sit<>stand from chair x 5 SBA to CGA and max cues for LLE placement and techniques for hip precautions. pt completed sit to stand and transfers from chair<>chair using fWW x 3 sets SBA to CGA and continues to require cues. initially max cues but towards the end only needing min cues . pt requested to use the toilet . ambulated using fWW SBA. able to maintain standing CGA while managing brief . sit to stand from the toilet CGA and ambulated towards the sink SBA. able to maintain standing SBA while completing handwashing. pt back on her chair. positioned pt on the chair. call light and table placed within reach. Gait Assessment Gait Gait Assistance Required: Standby Assistance,Contact Guard Assist Distance (Feet) 75 Able to Maintain Weight Bearing Status Yes During Gait Assistive Devices Assistive Device Gait Belt,Front Wheeled Walker Orthotic/Prosthetic Devices or Brace: No Gait Deviations General Gait Pattern Antalgic,Decreased Stride Length,Decreased Feet Clearance Factors Limiting Gait Function Factors Limiting Gait Function Decreased Activity Tolerance, Decreased Strength,Difficulty Following Directions,Limited Range of Motion,Poor Balance, Poor Safety Awareness M5 PT-IP Objective Assessments Start: 06/05/24 14:16 Freq: NEEDED Status: Active Protocol: Document 06/05/24 15:41 SAK (Rec: 06/05/24 15:58 SAK [id number]) Orientation Orientation/Cognition Level of Alertness Alert Orientation Name,Age,Place,Situation Language Function Ability No Deficits Noted Safety Awareness Decreased Safety Awareness Memory Description Short Term Impaired Comments Patient unable to recall post XIMENA precautions after instruction and review Gross Range of Motion Upper Extremity ROM Assessment Within Functional Limits Lower Extremity ROM Assessment Within Functional Limits Strength Upper Extremity Strength Assessment Within Functional Limits Lower Extremity Strength Assessment Within Functional Limits Coordination Assessment Gross Coordination Gross Coordination WNL Sensation Assessment Sensation Gross Sensation WNL M6 PT-IP Treatment Start: 06/05/24 14:16 Freq: NEEDED Status: Active Protocol: Document 06/07/24 09:05 AB (Rec: 06/07/24 11:37 AB Desktop) Physical Therapy Treatment Education Education Provided Precautions,Safety M7 PT-IP Assessment and Plan Start: 06/05/24 14:16 Freq: NEEDED Status: Active Protocol: Document 06/07/24 09:05 AB (Rec: 06/07/24 11:37 AB Desktop) PT Summary Assessment and Plan Potential Rehabilitation Potential Good Summary Impairments Pain,ROM,Strength,Balance, Coordination,Sensation,Tone, Cognition,Bed Mobility, Transfers,Gait,Activity Tolerance Progress Towards Goals Slow Progress - Other Assessment Summary pt slowly improving with mobility using FWW but continues to require cues with all tasks for safety and to adhere to hip precautions. pt will benefit from SNF rehab to improve overall mobility independence. Goals Bed Mobility Goal Independent Transfer Goal Independent Gait Goal Independent,Front Wheel Walker Gait Distance 100 Other Goals independent ascend and descend SPC/ FUNERAL ASSISTANT Days to Meet Goals 10 Frequency of Treatment Other frequency 1-2 Treatment Plan Physical Therapy Treatment Plan Bed Mobility Training,Transfer Training,Gait Training, Therapeutic Exercise,Balance Retraining,Post Op Education, Discharge Planning,Hot or Cold Pack,Neuromuscular Re-ed, Coordination Retraining,Manual Therapy Precautions Posterior Hip Precautions No Hip Flexion > 90 degrees,No Hip Internal Rotation,No Hip Adduction Weight Bearing Status Weight Bearing Status Weight Bear as Tolerated Allowed Weight Bearing Amount (enter % LLE WBAT or #) (%) Recommendations To Nursing Amount of Assist Needed 1 Person Assist Discharge Recommendations PT Discharge Recommendations SNF Rehab Transportation Needs at Discharge Private Vehicle,Wheelchair/ Cabulance - PT assist 1
--- NOTE | 2024-06-07 13:05 | PT.IPTN ---
Current Diagnoses Dislocation of internal left hip prosthesis, initial encounter (06/05/24) Presence of left artificial hip joint (06/05/24) Surgery Performed Operation Date: 06/05/24 10:45 Actual Procedures p Revision, total arthroplasty, hip, of the polyethylene liner and femoral head (left)(Left) - Jeanne Benedict MD Physical Therapy Treatment Note M2 PT-IP Current Condition Start: 06/05/24 14:16 Freq: NEEDED Status: Active Protocol: Document 06/05/24 15:41 SAK (Rec: 06/05/24 15:58 SAK [id number]) Physical Therapy Current Condition Current Condition Evaluation Date 06/05/24 Treatment Diagnosis s/p L posterior XIMENA revision Onset Date 06/05/24 M3 PT-IP Subjective Start: 06/05/24 14:16 Freq: NEEDED Status: Active Protocol: Document 06/07/24 13:05 AB (Rec: 06/07/24 14:11 AB Desktop) Subjective Physical Therapy Visit Type Type Treatment Note Visit Start Time 13:05 Visit Stop Time 13:31 Number of DEBURRER MACHINE Visits 0 Physical Therapy Visit Comments Patient Comments agreeable to do PT Therapy Pain Assessment Pain Present Pain Present Denied Pain M4 PT-IP Mobility and Gait Start: 06/05/24 14:16 Freq: NEEDED Status: Active Protocol: Document 06/07/24 13:05 AB (Rec: 06/07/24 14:11 AB Desktop) PT-Bed Mobility Assessment Supine to Sit Supine to Sit Maximum Assistance Sit to Supine Sit to Supine Contact Guard Assistance PT-Transfer Assessment Sit to and From Stand Sit to and from Stand Standby Assistance,Contact Guard Assistance Equipment Transfer Assistive Device Gait Belt,Front Wheeled Walker Orthotic/Prosthetic Devices or Brace: No Transfers Transfer Destination Toilet Transfer Technique ambulated Transfer Ability Level of Assist Standby Assistance,Contact Guard Assistance,1 Person Assistance,Use of Upper Extremities Comments Mobility Comments pt in bed and agreeable to do PT. supine to sit max A and max cues. sit to stand CGA and cues for precautions. pt ambulated in room using FWW ~ 25 ft and sat on the chair. pt continues to forget LE position for precaution. Reviewed precautions with pt and pt able to recall 2/3. pt agreed to walk more. sit to stand from chair SBA and max cues and ambulated in the hallway using FWW ~ 125 ft SBA to CGA. cued for safety. pt tends to push FWW too far forward. cued for placement and upright posture. pt ambulated back to her room. requested to use the toilet. ambulated to the toilet using fWW SBA. able to stand CGA for balance using FWW for support while assisted with hygiene care and brief management. pt ambulated towards the bed. (+) DEDE during ambulation requiring mod A for recovery. pt with decrease safety awareness and stated that she was in a hurry to move. pt sat on the EOB. sit to supine min A and cues. positioned pt on the bed. call light and table placed within reach. Gait Assessment Gait Gait Assistance Required: Standby Assistance,Contact Guard Assist,Moderate Assistance Distance (Feet) 125 Able to Maintain Weight Bearing Status Yes During Gait Assistive Devices Assistive Device Gait Belt,Front Wheeled Walker Orthotic/Prosthetic Devices or Brace: No Gait Deviations General Gait Pattern Antalgic,Decreased Feet Clearance,Flexed Trunk Factors Limiting Gait Function Factors Limiting Gait Function Decreased Activity Tolerance, Decreased Strength,Limited Range of Motion,Poor Balance, Poor Safety Awareness M5 PT-IP Objective Assessments Start: 06/05/24 14:16 Freq: NEEDED Status: Active Protocol: Document 06/05/24 15:41 [facility] (Rec: 06/05/24 15:58 [facility] [id number]) Orientation Orientation/Cognition Level of Alertness Alert Orientation Name,Age,Place,Situation Language Function Ability No Deficits Noted Safety Awareness Decreased Safety Awareness Memory Description Short Term Impaired Comments Patient unable to recall post XIMENA precautions after instruction and review Gross Range of Motion Upper Extremity ROM Assessment Within Functional Limits Lower Extremity ROM Assessment Within Functional Limits Strength Upper Extremity Strength Assessment Within Functional Limits Lower Extremity Strength Assessment Within Functional Limits Coordination Assessment Gross Coordination Gross Coordination WNL Sensation Assessment Sensation Gross Sensation WNL M6 PT-IP Treatment Start: 06/05/24 14:16 Freq: NEEDED Status: Active Protocol: Document 06/07/24 13:05 AB (Rec: 06/07/24 14:11 AB Desktop) Physical Therapy Treatment Education Education Provided Precautions,Safety M7 PT-IP Assessment and Plan Start: 06/05/24 14:16 Freq: NEEDED Status: Active Protocol: Document 06/07/24 13:05 AB (Rec: 06/07/24 14:11 AB Desktop) PT Summary Assessment and Plan Potential Rehabilitation Potential Good Summary Impairments ROM,Strength,Balance, Coordination,Cognition,Bed Mobility,Transfers,Gait, Activity Tolerance Progress Towards Goals Slow Progress - Other Assessment Summary pt requiring SBA to CGA with ambulation using FWW but with (+) LOB requiring mod A to recovery. pt can be impulsive and with decrease safety awareness. pt continues to require cues for all tasks to adhere to hip precautions. pt lives alone and will need assistance. pt will benefit from SNF rehab to improve mobility independence. Goals Bed Mobility Goal Independent Transfer Goal Independent Gait Goal Independent,Front Wheel Walker Gait Distance 100 Other Goals independent ascend and descend SPC/ GIRL FRIDAY Days to Meet Goals 10 Frequency of Treatment Other frequency 1-2 Treatment Plan Physical Therapy Treatment Plan Bed Mobility Training,Transfer Training,Gait Training, Therapeutic Exercise,Balance Retraining,Post Op Education, Discharge Planning,Hot or Cold Pack,Neuromuscular Re-ed, Coordination Retraining,Manual Therapy Precautions Posterior Hip Precautions No Hip Flexion > 90 degrees,No Hip Internal Rotation,No Hip Adduction Weight Bearing Status Weight Bearing Status Weight Bear as Tolerated Allowed Weight Bearing Amount (enter % LLE WBAT or #) (%) Recommendations To Nursing Amount of Assist Needed 1 Person Assist Discharge Recommendations PT Discharge Recommendations SNF Rehab Transportation Needs at Discharge Private Vehicle,Wheelchair/ Cabulance - PT assist 1
--- NOTE | 2024-06-07 13:24 | CM.DPC ---
DCP Cont: Per Ortho, pt making slow progress and pain seems better controlled. Per PT, pt making progress but still needing cues and assist and recommending SNF before return home. SW spoke to admissions at [facility] and still no AARP MCR auth in place yet and still under review. PASRR done. Plan: [facility] once insurance SNF auth obtained before safe d/c back home alone. LUIS Trevino
[2024-06-07 20:38] VITALS: BP 144/68; PULSE 75; RESP 17; TEMP 36.7; O2SAT 98
[2024-06-07] MEDS: atenoloL 25 MG TABLET 50 MG PO (21:16)
[2024-06-07] MEDS: MELATONIN 3 MG TABLET 9 MG PO (21:16)
[2024-06-07] MEDS: ATORVASTATIN 20 MG TABLET 80 MG PO (21:16)
[2024-06-07] MEDS: TRAZODONE 50 MG TABLET PO (21:16)
[2024-06-07] MEDS: AMLODIPINE 5 MG TABLET PO (21:35)
[2024-06-08] MEDS: DONEPEZIL 5 MG TABLET PO (09:15)
[2024-06-08] MEDS: DOCUSATE 100 MG CAPSULE PO ×2 (09:15→21:07)
[2024-06-08] MEDS: ACETAMINOPHEN 325 MG TABLET 650 MG PO ×3 (09:16→21:06)
[2024-06-08] MEDS: ASPIRIN EC 81 MG TABLET PO ×2 (09:16→21:07)
[2024-06-08 09:18] VITALS: BP 134/53; PULSE 60
--- NOTE | 2024-06-08 09:43 | PT.IPTN ---
Current Diagnoses Dislocation of internal left hip prosthesis, initial encounter (06/05/24) Presence of left artificial hip joint (06/05/24) Surgery Performed Operation Date: 06/05/24 10:45 Actual Procedures p Revision, total arthroplasty, hip, of the polyethylene liner and femoral head (left)(Left) - Jeanne Benedict MD Physical Therapy Treatment Note M2 PT-IP Current Condition Start: 06/05/24 14:16 Freq: NEEDED Status: Active Protocol: Document 06/05/24 15:41 SAK (Rec: 06/05/24 15:58 SAK [id number]) Physical Therapy Current Condition Current Condition Evaluation Date 06/05/24 Treatment Diagnosis s/p L posterior XIMENA revision Onset Date 06/05/24 M3 PT-IP Subjective Start: 06/05/24 14:16 Freq: NEEDED Status: Active Protocol: Document 06/08/24 08:42 MB (Rec: 06/08/24 09:43 MB [id number]) Subjective Physical Therapy Visit Type Type Treatment Note Visit Start Time 08:42 Visit Stop Time 09:05 Number of ART INSTRUCTOR Visits 0 Physical Therapy Visit Comments Patient Comments Pt is pleasant and agreeable to PT. Therapy Pain Assessment Pain When Pain Assessed At Rest Pain Present Pain Present Denied Pain M4 PT-IP Mobility and Gait Start: 06/05/24 14:16 Freq: NEEDED Status: Active Protocol: Document 06/08/24 08:42 MB (Rec: 06/08/24 09:43 MB [id number]) PT-Bed Mobility Assessment Rolling Type of Rolling Roll to Left Level of Assist Contact Guard Assistance,1 Person Assistance Supine to Sit Supine to Sit Contact Guard Assistance,1 Person Assistance,Head of Bed Elevated,Bedrails Scooting Scooting to Edge of Bed Contact Guard Assistance PT-Transfer Assessment Sit to and From Stand Sit to and from Stand Standby Assistance,Contact Guard Assistance,1 Person Assistance,Use of Upper Extremities Equipment Transfer Assistive Device Gait Belt,Front Wheeled Walker Orthotic/Prosthetic Devices or Brace: No Transfers Transfer Destination Chair Transfer Technique Ambulation Transfer Ability Level of Assist Standby Assistance,1 Person Assistance,Use of Upper Extremities Comments Mobility Comments Pt recalls hip precautions, though states flexion no greater than 90 deg and PT ed pt that Dr. Benedict order states no flexion past 70 deg and she can ask surgeon about that . Cued pt to keep right leg on bed to help boost her to her left side to help push up to sitting and she is able to perform supine to sit without physical assistance from PT. Hip precautions are maintained . Gait Assessment Gait Gait Assistance Required: Standby Assistance Distance (Feet) 250 Able to Maintain Weight Bearing Status Yes During Gait Assistive Devices Assistive Device Gait Belt,Front Wheeled Walker Orthotic/Prosthetic Devices or Brace: No Gait Deviations General Gait Pattern Antalgic,Decreased Feet Clearance,Flexed Trunk,Step-to Gait Factors Limiting Gait Function Factors Limiting Gait Function Decreased Strength Stair Climbing Assessment Evaluation Level of Assist On Stairs Contact Guard Assistance,1 Person Assistance Devices Stair Climbing Assistive Devices Left Railing,Right Railing Technique/Endurance Stair Climbing Direction Ascend and Descend Stair Climbing Technique Step to Step Number of Steps Climbed 3 Stair Climbing Set # Repetitions (reps) 2 Comments Stair Climbing Comments Ascend first with right foot and descend first with left foot M5 PT-IP Objective Assessments Start: 06/05/24 14:16 Freq: NEEDED Status: Active Protocol: Document 06/05/24 15:41 SAK (Rec: 06/05/24 15:58 SAK [id number]) Orientation Orientation/Cognition Level of Alertness Alert Orientation Name,Age,Place,Situation Language Function Ability No Deficits Noted Safety Awareness Decreased Safety Awareness Memory Description Short Term Impaired Comments Patient unable to recall post XIMENA precautions after instruction and review Gross Range of Motion Upper Extremity ROM Assessment Within Functional Limits Lower Extremity ROM Assessment Within Functional Limits Strength Upper Extremity Strength Assessment Within Functional Limits Lower Extremity Strength Assessment Within Functional Limits Coordination Assessment Gross Coordination Gross Coordination WNL Sensation Assessment Sensation Gross Sensation WNL M6 PT-IP Treatment Start: 06/05/24 14:16 Freq: NEEDED Status: Active Protocol: Document 06/08/24 08:42 MB (Rec: 06/08/24 09:43 MB [id number]) Physical Therapy Treatment Education Education Provided Precautions,Safety M7 PT-IP Assessment and Plan Start: 06/05/24 14:16 Freq: NEEDED Status: Active Protocol: Document 06/08/24 08:42 MB (Rec: 06/08/24 09:43 MB [id number]) PT Summary Assessment and Plan Potential Rehabilitation Potential Excellent Status of Condition at Evaluation Evolving Summary Impairments ROM,Strength,Balance, Coordination,Bed Mobility, Transfers,Gait Progress Towards Goals Progressing Toward Goals Assessment Summary Pt is progressing well towards goals. 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 Benedict's order of no hip flexion past 70 deg. Goals Bed Mobility Goal Independent Transfer Goal Independent Gait Goal Independent,Front Wheel Walker Gait Distance 300 Other Goals independent ascend and descend SPC/ GUEST RELATIONS AGENT Days to Meet Goals 5 Frequency of Treatment Frequency Of Treatment Once a Day Treatment Plan Physical Therapy Treatment Plan Bed Mobility Training,Transfer Training,Gait Training, Therapeutic Exercise,Balance Retraining,Post Op Education, Discharge Planning,Hot or Cold Pack,Neuromuscular Re-ed, Coordination Retraining,Manual Therapy Precautions Other Precautions Per Dr. Benedict order on 06/05/24, no flexion of hip past 70 deg , no crossing of legs or internal rotation of operated hip/leg Weight Bearing Status Weight Bearing Status Weight Bear as Tolerated Allowed Weight Bearing Amount (enter % LLE WBAT or #) (%) Recommendations To Nursing Amount of Assist Needed 1 Person Assist Discharge Recommendations PT Discharge Recommendations SNF Rehab Transportation Needs at Discharge Private Vehicle - PT assist 1
--- NOTE | 2024-06-08 10:16 | P.PN_ITS ---
Subjective Subjective Date Patient Seen: 06/08/24 Time Patient Seen: 10:16 Interval history: Status post left revision hip replacement with Dr. Benedict. Doing well. Pain controlled. States she has been walking quite a lot. She was recommended for long term placement by Physical therapy. They are concerned given social situation and mobility. We have been awaiting placement over the weekend. No words yet today if there is a spot for her. Denies fevers chills nausea or vomiting or shortness of breath. States the itchy area on the pocket of the gout is the thing that is bothering her the most this morning rubbing on gallbladder scar Exam Vital Signs (past 8 hours): - 06/08/24 09:18 Pulse Rate 60 Blood Pressure 134/53 L Oxygen Delivery Method Room Air Oxygen Flow Rate 0 Narrative Exam Narrative: Alert oriented no acute distress sitting in the chair at bedside Breathing unlabored on room air Demonstrates dorsiflexion plantar flexion 5/5 bilateral lower extremities. Left hip nawaf dressing in place dressing clean. Thigh and calf are soft. Brisk capillary refill. 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) History of colonoscopy with polypectomy Hx of bilateral cataract extraction History of carpal tunnel surgery of right wrist Status post epidural steroid injection Hx of thumb surgery Hx of cholecystectomy Hx of elbow surgery History of hysterectomy History of total right hip arthroplasty (12/04/14) Social History household members: none Smoking Status: Never smoker alcohol intake: never Assessment & Plan Post-op Postoperative Procedures: Procedures Operation Date: 06/05/24 10:45 Actual Procedure Side Surgeon p Revision, total arthroplasty, hip, of the polyethylene liner and femoral head (left) Left Jeanne Benedict MD Postoperative day: 3 Postoperative status: doing well Postoperative status narrative: Postop left revision hip arthroplasty. Weightbear as tolerated with the assistive devices, postoperative posterior hip precautions. Stable for discharge when long term placement secured. Postoperative plan narrative: Aspirin 81 mg b.i.d. x6 weeks for DVT prophylaxis. I placed a soft dressing on the inside of the gown pocket that resolved the irritation she was complaining of. Her left hip nawaf dressing is functioning well. Dressing clean and intact Time Spent With Patient Time with patient: less than 15 minutes Quality VTE Deep Vein Thrombosis/Pulmonary Embolism Present on Admission: No
--- NOTE | 2024-06-08 14:07 | CM.DPC ---
DCP HH Planning: Per Ortho Surgeon and PT, pt made significant progress today and was able to ambulate halls with FWW and do stairs a few times and recommending home tomorrow with HH. Per admissions at [facility], [employer] AARP auth still pending for SNF today as well. SW met bedside with pt and explained role and she confirms that she feels she is mobilizing well and agreeable with d/c to home tomorrow and states her neighbor friend can provide transport home and she will ask him to arrive around 1100 tomorrow Mon. SW discussed HH referral and pt has no hx of HH and explained services and frequency. Pt states she has outpt PT already set up in [place] but feels HH needed before she is mobilizing better for outpt PT. SW provided the HH Choice list and no HH preference and aware that SW needs to confirm HH agency contracted with her insurance and covers [place] area. SW made [facility] referral based on Vendor Calendar and they will review to confirm they can accept her insurance and cover [place]. F2F completed. Plan: SW to follow for plan of patient d/c home tomorrow Mon via friend POV around 1100 and to confirm which HH agency takes pt's insurance and covers [place]. LUIS Trevino
[2024-06-08 20:13] VITALS: BP 137/49; PULSE 63; RESP 12; TEMP 36.6; O2SAT 95
[2024-06-08] MEDS: atenoloL 25 MG TABLET 50 MG PO (21:07)
[2024-06-08] MEDS: AMLODIPINE 5 MG TABLET PO (21:07)
[2024-06-08] MEDS: ATORVASTATIN 20 MG TABLET 80 MG PO (21:07)
[2024-06-08] MEDS: MELATONIN 3 MG TABLET 9 MG PO (21:08)
[2024-06-08] MEDS: TRAZODONE 50 MG TABLET PO (21:08)
--- NOTE | 2024-06-09 06:56 | PT-IP ANOTE ---
PT reviewed chart and noted update plan for pt to d/c home today after doing well with PT last date. Will check back later for PT if pt does not d/c.
--- NOTE | 2024-06-09 08:58 | PM.DS.1 ---
History of Present Illness History of Present Illness Date Patient Seen: 06/09/24 Time Patient Seen: 08:58 Chief complaint: INPT Narrative: s/p L [facility]IMENA-- inpt stay do to mobilization/pain and social issues-- they was attmpt for SNF after rec by PT/OT-- and SNF placement awaited but on POD 3/4pt had improved and cleared for dc home Discharge Providers Provider Date of admission: 06/05/24 08:28 Discharge Date: 06/09/24 Consults: 06/05/24 06:43 Consult to Anesthesiology Routine Comment: Consulting Provider: Anesthesiologist Reason for consultation: Regional block for post operative pain control Has provider been notified: No 06/05/24 13:49 Consult to Discharge Planning Routine Comment: Consult to Occupational Therapy Evaluate & Treat Comment: Physician Instructions: Evaluate and treat Consult to Physical Therapy Evaluate & Treat Comment: Physician Instructions: post op XIMENA protocol Discharge provider: Brigitte Wallace MD Summary Hospital Course Discharge Diagnosis: hip OA left Hospital Course: 06/05/24 L [facility] stayed for PT/Ot- rec SNF continued to work with PT/OT over wknd awaiting SNF-- then improved enough for home DC pain control imporved from IV to oral meds Status at Discharge Cognitive/behavioral status at discharge: oriented Functional status at discharge: uses cane/walker Overall status at discharge: patient is progressing back to baseline Time Spent with Patient Time spent: Less than 30 minutes Exam Vital Signs (past 8 hours): Oxygen Delivery Method Room Air Oxygen Flow Rate 0 Narrative Exam Narrative: A&O NCAT LLE with nawaf inplace c/d/i DF/PF 5/5 DP palp calf soft Objective Labs 06/06/24 04:09 PFSH Medical History Medication side effect Memory changes Lumbar stenosis with neurogenic claudication Cervical radiculopathy due to degenerative joint disease of spine Ankle fracture (2023) Hip dislocation, left Diverticulosis Hearing impaired Neuropathy HLD (hyperlipidemia) Lumbar spinal stenosis Osteoarthritis Bilateral hip pain HTN (hypertension) Diabetes mellitus, type II Surgical History History of carpal tunnel surgery of left wrist (~2021) 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 Hold hypertensive medications. Discharge to home. ? Posterior Hip Pre-cautions. Ambulate and weight bear as tolerated with assistive devices. ? Aspirin 81 mg twice a day for 6 weeks for DVT prevention. ? Baseline pain relief with acetaminophen 500mg every 4 hours as needed and ibuprofen 400 mg every 4 hours as needed. ?Patient declined narcotic pain relievers. Initiate physical therapy in the next 5-10 days. ? Keep dressing clean and dry. Keep dressing on until first office visit. If dressing becomes dirty or disrupted, replace with appropriate sized dressing. Follow up in clinic in 2 weeks for wound check. Contact clinic if there are any questions or concerns. Discharge Plan Discharge Plan Patient Disposition: Home Discharge orders & Medications Prescriptions: New aspirin 81 mg Tablet,Delayed Release (Dr/Ec) 81 mg PO BID Qty: 90 0RF Continued donepezil 5 mg Tablet 5 mg PO DAILY trazodone 50 mg Tablet 50 mg PO BEDTIME rosuvastatin 40 mg Tablet 40 mg PO DAILY amlodipine 5 mg Tablet 5 mg PO BEDTIME acetaminophen [Tylenol Extra Strength] 500 mg Tablet 1,000 mg PO DAILY glimepiride 2 mg Tablet 2 mg PO QAM lisinopril 40 mg Tablet 40 mg PO DAILY atenolol 50 mg Tablet 50 mg PO BID melatonin 10 mg Tablet 10 mg PO BEDTIME Follow up/Referrals: Jeanne Benedict MD [Physician] - Diet/Activity/Treatments Diet: Diet as Tolerated Activity: Ambulate multiple times a day. Use a cane or walker as needed. Full weight on leg. Cold/Heat Therapy: Use ice multiple times a day. Skin/Wound/Dressing Care Report to your healthcare provider any signs of infection, such as:: chills, fever, night sweats, unusual drainage and unusual redness Dressing: May shower. Leave dressing in place until follow up in office. No bathing or otherwise soaking incision. Call the office if the dressing becomes saturated inside. Visit Report/Discharge Packet Instructions: DI for Hip Replacement, DI for Prescription Opioid Use Stand Alone Forms: Patient Portal/API, Stroke Signs & Symptoms, Surgery Discharge Quality VTE Deep Vein Thrombosis/Pulmonary Embolism Present on Admission: No
[2024-06-09] MEDS: DOCUSATE 100 MG CAPSULE PO (09:35)
[2024-06-09] MEDS: DONEPEZIL 5 MG TABLET PO (09:35)
[2024-06-09] MEDS: ASPIRIN EC 81 MG TABLET PO (09:35)
[2024-06-09] MEDS: ACETAMINOPHEN 325 MG TABLET 650 MG PO (09:37)
--- NOTE | 2024-06-09 10:10 | PC.NURSE ---
Addendum entered by Wendy Land R.N. 06/09/24 12:21: Patients lisinopril and beta chelly held this morning as dyastolic was down to 49. Instructed patient at discharge to check her blood pressure at home and if ok can take these meds tonight. Original Note: Assess- Patients dressing cdi, nawaf dressing. She worked with OT and is walking with fww well. Patient is going to discharge today.
--- NOTE | 2024-06-09 10:38 | CM.DPC ---
DCP Discharge Home with HH Per Ortho, pt medically stable to d/c home with HH today and no identified barriers to discharge. OT worked with pt this morning and got her ready to discharge home and PT/OT still recommending home with HH. VICKEY confirmed that [facility] does not cover [place] area but [facility] accept her insurance and covers [place] and accepts the referral. VICKEY faxed F2F, orders, and d/c summary to [facility] . VICKEY called [facility] in [place] per pt's request and let them know pt discharging home today but starting with HH and they cancelled pt's first appointment next week and request that she call to confirm schedule for outpt PT soon. VICKEY updated pt on above and confirmed her PCP is Dr. Joanna Parrish at the [facility]. Pt confirms that her ride will arrive around 1100 to transport her home today and she remains in agreement with discharge and provided the [facility] brochure as well. Pt very appreciative and glad to be going home. HERBERT Walters kindly updated [facility] that pt improved for home and [facility] transport cancelled for today to SNF. Stefani Acevedo, SINTER PRESS OPERATOR
--- NOTE | 2024-06-09 12:01 | PC.NURSE ---
nawaf dressing to L posterior hip blinking that suction is no longer patent. As patient is discharging home, dressing changed to aquacel. Incision looks well approximated and surrounding tissue is free from signs of infection.
== END 2024-06-09 11:59 | disposition home health service (06) | DRG 468 ==
PROVIDERS: Admitting Provider Orthopaedic Surgery; Referring Provider Orthopaedic Surgery; Visit Provider Orthopaedic Surgery
PROC: 0SRS01A Replacement of Left Hip Joint, Femoral Surface with Metal Synthetic Substitute, Uncemented, Open Approach (ICD-10-PCS; principal; 2024-06-05 10:45)
DX: T84.021A Dislocation of internal left hip prosthesis, initial encounter (principal); Z98.1 Arthrodesis status; Y83.1 Surgical operation with implant of artificial internal device as the cause of abnormal reaction of the patient, or of later complication, without mention of misadventure at the time of the procedure; M47.812 Spondylosis without myelopathy or radiculopathy, cervical region; G62.9 Polyneuropathy, unspecified; E78.5 Hyperlipidemia, unspecified; I10 Essential (primary) hypertension; E11.9 Type 2 diabetes mellitus without complications; Z96.641 Presence of right artificial hip joint; Z88.5 Allergy status to narcotic agent; H91.91 Unspecified hearing loss, right ear; Z83.3 Family history of diabetes mellitus; Z79.84 Long term (current) use of oral hypoglycemic drugs; Z79.1 Long term (current) use of non-steroidal anti-inflammatories (NSAID)
CPT/HCPCS: 36415; 72170; 73502; 85014; 85018; 86850; 86900; 86901; 87070; 87075; 87205; 87801; 97116; 97162; 97165; 97530; 97535; J0666; J0690; J1885; J2270; J2405; J2704; J2765; J3010